=== PATIENT | male | born 1945 | race Caucasian/White ===

== ENCOUNTER → 2018-06-06 16:16 | Outpatient (CLI) | payer OTHER, SELFPAY ==
[2018-06-09 14:35] LABS: Albumin 4.3 g/dL (3.6-5.1); Sex Hormone Binding Globulin 17 nmol/L (22-77); Testosterone, Bioavailable 123.2 ng/dL (15.0-150.0); Testosterone, Total 298 ng/dL (250-1100); Testosterone,Free 62.6 pg/mL (6.0-73.0)
== END ==
PROVIDERS: Family Provider Physician Assistant Medical; Visit Provider Internal Medicine
DX: E29.1 Testicular hypofunction (principal)
CPT/HCPCS: 36415; 82040; 84270; 84403

== ENCOUNTER → 2018-06-24 12:04 | Outpatient (CLI) | payer OTHER, SELFPAY | DX: Z23 Encounter for immunization (principal) | CPT/HCPCS: 90471; 90662 ==

== ENCOUNTER → 2018-08-19 08:24 | Outpatient (CLI) | payer OTHER, SELFPAY ==
--- NOTE | 2018-08-19 | DI.ECHO.S_ITS ---
[place] +---------+ [facility] +---------+ : : [address] : : : : [place] : : : : [id number] : : : : Phone: [phone]+ Echocardiogram Report + + :Name: PHILIP VYAS V Study Date: 08/19/2018 Height: 70 in : :[facility] Exam Location: [facility] Weight: 167 lb : : Gender: Male BSA: 1.9 m2 : :: 1945 Age: 72 yrs BP: 122/64 mmHg: :Reason For Study: Cardiomyopathy : :Ordering Physician: Tunde : :Bipin Performed By: Monica Davila : :Referring: Tunde Voss : + + Interpretation Summary The left ventricle is moderately dilated. The ejection fraction is estimated to be 30-35%. There has been no significant change in LV EF since the previous study. The right ventricle is grossly normal size. The right ventricular systolic function is normal. There is a pacemaker lead in the right ventricle. There is mild tricuspid regurgitation. The right ventricular systolic pressure is estimated to be at least 34 mmHg based on an estimated right atrial pressure of 3 mm Hg. The ascending aorta is mild-moderately enlarged. Procedure: A two-dimensional transthoracic echocardiogram with color flow and Doppler was performed. The study quality was technically adequate. Comparison is made with the echocardiogram of 08/21/2010. The patient has a paced rhythm. Left Ventricle: The left ventricle is moderately dilated. Left ventricular wall thickness is normal. A false chord is noted (normal variant). There is no thrombus. The ejection fraction is estimated to be 30-35%. There has been no significant change since the previous study. There is moderate to severe global hypokinesis of the left ventricle. There is apical akinesis. There is apical septal wall akinesis. There is mid inferoseptal wall akinesis. There is apical inferior wall akinesis. There is mid anteroseptal wall akinesis. There is mid anterior wall akinesis. There is apical anterior wall akinesis. Diastolic parameters suggest a relaxation abnormality of the left ventricle, consistent with probable normal filling pressures. Right Ventricle: There is a pacemaker lead in the right ventricle. The right ventricle is grossly normal size. The right ventricular systolic function is normal. Atria: The left atrium is mildly dilated. There has been no significant change since the previous study. Right atrial size is normal. There is a catheter/pacemaker lead seen in the right atrium. The interatrial septum is intact with no evidence for an atrial septal defect. Mitral Valve: The mitral valve leaflets appear borderline thickened, but open well. There is mild mitral annular calcification. The mitral valve leaflets are slightly calcified. There is trace mitral regurgitation. Aortic Valve: The aortic valve is trileaflet. The aortic valve opens well. There is no aortic valvular vegetation. There is no hemodynamically significant valvular aortic stenosis. There is trace aortic regurgitation. Tricuspid Valve: The tricuspid valve is normal. There is mild tricuspid regurgitation. The right ventricular systolic pressure is estimated to be at least 34 mmHg based on an estimated right atrial pressure of 3 mm Hg. Pulmonic Valve: The pulmonic valve is not well seen, but is grossly normal. There is trace pulmonic regurgitation. Great Vessels: The aortic root is normal size. The ascending aorta is mild- moderately enlarged. The IVC is of normal diameter and collapses greater than 50% with a sniff. This suggests a low right atrial pressure of 3 mm Hg. Pericardium/ Pleura There is an anterior echo-free space consistent with a fat pad. There is no pericardial effusion. There is no pleural effusion. MMode/2D Measurements & Calculations LVIDd: 6.6 cm LVOT diam: 2.3 cm LVIDs: 4.4 cm Ao root diam: 3.5 cm FS: 34.0 % asc Aorta Diam: 4.2 cm IVSd: 0.79 cm Ao Arch Diam (Prox Trans): 3.4 cm LVPWd: 0.82 cm LV ambrose. diameter/BSA (cm/m^2): 3.4 LV sys. diameter/BSA (cm/m^2): 2.3 LA A2 area: 26.9 cm2 RA long axis: 4.1 cm LA A4 area: 17.9 cm2 RA area: 14.5 cm2 LA length (vol): 5.5 cm RA vol: 43.7 ml LA vol: 74.3 ml RA : 22.6 ml/m2 LA vol index: 38.4 ml/m2 IVC diam: 1.6 cm TAPSE: 2.1 cm Doppler Measurements & Calculations Ao V2 max: 121.4 cm/sec LVOT Max Keven: 110.0 cm/sec Ao V2 mean: 85.3 cm/sec LV V1 max P.8 mmHg Ao max P.9 mmHg LV V1 VTI: 23.3 cm Ao mean P.2 mmHg ESTELLE(I,D): 3.7 cm2 Ao V2 VTI: 26.5 cm ESTELLE(V,D): 3.8 cm2 sev ratio: 0.88 ESTELLE indexed to BSA (cm^2/m^2): 1.9 MV E max keven: 66.2 cm/sec TR max keven: 279.7 cm/sec MV A max keven: 80.3 cm/sec TR max P.3 mmHg MV E/A: 0.82 PA V2 max: 68.7 cm/sec MV dec time: 0.14 sec PA V2 mean: 45.5 cm/sec PA mean P.95 mmHg PA pr(Accel): 30.8 mmHg SV(LVOT): 96.9 ml Reading Physician:MARIAMA
== END ==
PROVIDERS: Family Provider Physician Assistant Medical; PCP Physician Assistant Medical; Visit Provider Internal Medicine Cardiovascular Disease
DX: I07.1 Rheumatic tricuspid insufficiency (principal); I42.9 Cardiomyopathy, unspecified; Z95.0 Presence of cardiac pacemaker
CPT/HCPCS: 93306

== ENCOUNTER → 2019-04-03 11:13 | Outpatient (CLI) | payer OTHER, SELFPAY ==
[2019-04-03 11:42] LABS: Bacteria Urine None Seen; RBC Urine None Seen (0-5/HPF)
[2019-04-03 12:26] LABS: Appearance Urine UA CLEAR; Bilirubin Urine UA NEGATIVE (NEGATIVE); Color Urine UA YELLOW; Glucose Urine UA NEGATIVE (Negative); Ketones Urine UA NEGATIVE (NEGATIVE); Leukocyte Esterase Urine UA NEGATIVE (NEGATIVE); Nitrite Urine UA NEGATIVE (Negative); Occult Blood Urine UA NEGATIVE (Negative); Protein Urine UA NEGATIVE (Negative); Urobilinogen Urine UA 0.2 E.U./dL (0.2); pH Urine UA 5.5 (4.5-8.0)
[2019-04-03 13:04] LABS: Culture Indicated Urine Cult Not Indicated; Squamous Epithelial Cell Urine 0-1 /HPF (0-5/HPF); WBC Urine 0-1/HPF (0-5/HPF)
[2019-04-03 13:08] LABS: BUN Creatinine Ratio 14.3 (6-22); Blood Urea Nitrogen 20 mg/dL (9-20); Calcium 9.2 mg/dL (8.4-10.2); Carbon Dioxide 29 mmol/L (22-32); Chloride 104 mmol/L (98-107); Estimated Glomerular Filt Rate 49.5 mL/min (>60); Glucose 87 mg/dL (80-110); HEMOLYSIS < 15 (0-50); Potassium 4.5 mmol/L (3.4-5.1); Sodium 141 mmol/L (137-145)
== END ==
PROVIDERS: PCP Internal Medicine; Visit Provider Internal Medicine
DX: I10 Essential (primary) hypertension (principal)
CPT/HCPCS: 36415; 80048; 81001

== ENCOUNTER → 2019-06-16 14:42 | Outpatient (CLI) | payer OTHER, SELFPAY | PROVIDERS: PCP Internal Medicine | DX: Z23 Encounter for immunization (principal) | CPT/HCPCS: 90471; 90662 ==

== ENCOUNTER → 2019-06-26 07:51 | Outpatient (CLI) | payer OTHER, SELFPAY | PROVIDERS: PCP Internal Medicine; Visit Provider Internal Medicine | DX: E29.1 Testicular hypofunction (principal) | CPT/HCPCS: 84402; 84403 ==

== ENCOUNTER → 2020-05-18 07:55 | Outpatient (CLI) | payer OTHER, SELFPAY ==
[2020-05-18 08:40] LABS: Add Manual Diff / Slide Review NO; Basophils Absolute Auto 0 /uL (0-100); Basophils Percent Auto 0.6 % (0-2); Eosinophils Absolute Auto 100 /uL (0-450); Eosinophils Percent Auto 1.8 % (2-4); Hematocrit 52.5 % (41-53); Hemoglobin 17.5 g/dL (13.5-17.5); Lymphocytes Absolute Auto 1200 /uL (1100-4500); Lymphocytes Percent Auto 17.2 % (25-40); Mean Corpuscular HGB Conc 33.3 % (30-36); Mean Corpuscular Hemoglobin 30.4 PG (26-34); Mean Corpuscular Volume 91.5 fL (80-100); Monocytes Absolute Auto 600 /uL (0-900); Monocytes Percent Auto 9.2 % (3-14); Neutrophils Absolute Auto 5000 /uL (1500-7000); Neutrophils Percent Auto 71.2 % (50-75); Platelet Count 132 X10^3/uL (150-400); Red Blood Cell Count 5.74 X10^6/uL (4.5-5.9); Red Cell Distribution Width 16.8 % (11.6-14.8)
[2020-05-24 12:21] LABS: Percent Free Testosterone 3.42 % (1.50-4.20); Testosterone Free 6.93 ng/dL (5.00-21.00); Testosterone Total 202.7 ng/dL (264.0-916.0)
== END ==
PROVIDERS: PCP Internal Medicine; Referring Provider Internal Medicine; Visit Provider Internal Medicine
DX: E29.1 Testicular hypofunction (principal); N40.1 Benign prostatic hyperplasia with lower urinary tract symptoms; R39.16 Straining to void
CPT/HCPCS: 36415; 84153; 84402; 84403; 85025

== ENCOUNTER → 2020-06-14 03:51 | Outpatient (CLI) | payer OTHER, SELFPAY | PROVIDERS: PCP Internal Medicine; Referring Provider Internal Medicine; Visit Provider Internal Medicine | DX: Z23 Encounter for immunization (principal) | CPT/HCPCS: 90471; 90662 ==

== ENCOUNTER → 2020-09-22 11:38 | Outpatient (CLI) | payer OTHER, SELFPAY ==
[2020-09-22 13:32] LABS: Prostate Specific Antigen 6.29 ng/mL (0.10-4.00)
== END ==
PROVIDERS: PCP Internal Medicine; Referring Provider Internal Medicine; Visit Provider Internal Medicine
DX: E29.1 Testicular hypofunction (principal)
CPT/HCPCS: 36415; 84153

== ENCOUNTER → 2021-02-13 07:29 | Outpatient (CLI) | payer OTHER, SELFPAY ==
[2021-02-13 08:42] LABS: Alanine Aminotransferase 23 IU/L (<50); Albumin 3.8 g/dL (3.5-5.0); Albumin Globulin Ratio 1.5 (1.0-2.8); Alkaline Phosphatase 64 U/L (38-126); Aspartate Aminotransferase 26 IU/L (17-59); BUN Creatinine Ratio 14.5 (6-22); Blood Urea Nitrogen 20 mg/dL (9-20); Calcium 9.6 mg/dL (8.4-10.2); Carbon Dioxide 30 mmol/L (22-32); Chloride 102 mmol/L (98-107); Cholesterol 124 mg/dL (140-199); Estimated Glomerular Filt Rate 50.1 mL/min (>60); Globulin 2.5 g/dL (1.7-4.1); Glucose 86 mg/dL (80-110); HDL Cholesterol 45 mg/dL (40-60); HEMOLYSIS < 15 (0-50); LDL Cholesterol Calculated 60 mg/dL (<100); Potassium 4.4 mmol/L (3.4-5.1); Sodium 139 mmol/L (137-145); Total Protein 6.3 g/dL (6.3-8.2); Triglycerides 93 mg/dL (35-150)
== END ==
PROVIDERS: PCP Internal Medicine; Referring Provider Internal Medicine Cardiovascular Disease; Visit Provider Internal Medicine Cardiovascular Disease
DX: E78.5 Hyperlipidemia, unspecified (principal)
CPT/HCPCS: 36415; 80053; 80061

== ENCOUNTER → 2021-04-10 13:04 | Outpatient (CLI) | payer OTHER, SELFPAY ==
[2021-04-10 15:57] LABS: COVID19 -Nasal RAPID Negative (Negative)
== END ==
PROVIDERS: PCP Internal Medicine; Visit Provider Nurse Practitioner
DX: Z01.812 Encounter for preprocedural laboratory examination (principal); Z20.822 Contact with and (suspected) exposure to COVID-19
CPT/HCPCS: 87635

== ENCOUNTER → 2021-04-12 09:13 | Outpatient (CLI) | payer OTHER, SELFPAY ==
--- NOTE | 2021-04-12 09:14 | DI.ECHO.S_ITS ---
[place] +---------+ Hospital +---------+ : : [address] [place] : : : : [id number] : : : : Phone: [phone]+ Echocardiogram Report + + :Name: PHILIP VYAS V Study Date: 04/12/2021 Height: 71 in : :[facility] ReadingLocation: Weight: 165 lb : : Gender: Male BSA: 1.9 m2 : :: 1945 Age: 75 yrs BP: 130/74 mmHg: :Reason For Study: ISCHEMIC CARDIOMYOPATHY : :Ordering Physician: : :ASHIA BERRY Performed By: Comfort Groves : :Referring: ASHIA BERRY : + + Interpretation Summary The left ventricle is normal in size. The ejection fraction is estimated to be 30-35%. There has been no significant change in LVEF since the previous exam. The right ventricle is normal in size and function. There is a pacemaker lead in the right ventricle. No significant valvular pathology seen. The ascending aorta is mildly enlarged. 3.8 cm in diameter. Previously it was 4.2 cm. The IVC is of normal diameter and collapses greater than 50% with a sniff. This suggests a low right atrial pressure of 3 mm Hg. Mild atherosclerotic plaque(s) in the aortic arch. Procedure: A two-dimensional transthoracic echocardiogram with color flow and Doppler was performed. The study quality was technically adequate. Comparison is made with the echocardiogram of 08/19/2018. The heart rate ranged between 58-70 bpm during the study. The patient was in normal sinus rhythm during the exam. Left Ventricle: The left ventricle is normal in size. Proximal septal thickening is noted. There is no echo evidence for significant left ventricular outflow tract obstruction. There is no thrombus. The ejection fraction is estimated to be 30-35%. There has been no significant change since the previous exam. There is moderate to severe global hypokinesis of the left ventricle. There is apical akinesis. There is apical septal wall akinesis. There is mid inferoseptal wall akinesis. There is apical inferior wall akinesis. There is mid anteroseptal wall akinesis. Compared to the prior exam, the left ventricular wall motion has not changed. Diastolic parameters suggest a relaxation abnormality of the left ventricle, consistent with probable normal filling pressures. There has been no significant change since the previous study. Right Ventricle: The right ventricle is normal in size and function. There is a pacemaker lead in the right ventricle. Atria: The left atrial size is normal. Right atrial size is normal. There is no Doppler evidence for an interatrial shunt. Mitral Valve: The mitral valve leaflets appear mildly thickened, but open well. There is mild mitral annular calcification. The mitral valve leaflets are mildly calcified. There is mild mitral regurgitation. Aortic Valve: The aortic valve is trileaflet. The aortic valve opens well. There is no aortic valve stenosis. No aortic regurgitation is present. Tricuspid Valve: The tricuspid valve is normal. There is mild tricuspid regurgitation. The right ventricular systolic pressure is estimated to be at least 23 mmHg based on an estimated right atrial pressure of 3 mm Hg. Compared to the prior echo exam, there has been no change in TR severity. Pulmonic Valve: The pulmonic valve is not well visualized. There is no pulmonic valvular regurgitation. Great Vessels: The aortic root is normal size. The ascending aorta is mildly enlarged. Mild atherosclerotic plaque(s) in the aortic arch. The IVC is of normal diameter and collapses greater than 50% with a sniff. This suggests a low right atrial pressure of 3 mm Hg. Pericardium/ Pleura There is no pericardial effusion. There is no pleural effusion. MMode/2D Measurements & Calculations LVIDd: 5.4 cm LVOT diam: 2.0 cm LVIDs: 4.2 cm Ao root diam: 3.4 cm FS: 22.8 % asc Aorta Diam: 3.8 cm IVSd: 0.97 cm Ao Arch Diam (Prox Trans): 3.5 cm LVPWd: 0.93 cm LV ambrose. diameter/BSA (cm/m^2): 2.8 LV sys. diameter/BSA (cm/m^2): 2.1 LA A2 area: 19.7 cm2 RA long axis: 4.1 cm LA A4 area: 17.9 cm2 RA area: 13.4 cm2 LA length (vol): 4.8 cm RA vol: 36.8 ml LA vol: 62.6 ml RA : 18.9 ml/m2 LA vol index: 32.2 ml/m2 IVC diam: 1.4 cm RVD1 (basal): 3.3 cm TAPSE: 1.7 cm Doppler Measurements & Calculations Ao V2 max: 99.7 cm/sec LVOT Max Keven: 113.2 cm/sec Ao V2 mean: 72.0 cm/sec LV V1 max P.1 mmHg Ao max P.0 mmHg LV V1 VTI: 20.1 cm Ao mean P.3 mmHg ESTELLE(I,D): 3.3 cm2 Ao V2 VTI: 19.5 cm ESTELLE(V,D): 3.6 cm2 sev ratio: 1.0 ESTELLE indexed to BSA (cm^2/m^2): 1.7 MV E max keven: 57.6 cm/sec TR max keven: 222.9 cm/sec MV A max keven: 94.3 cm/sec TR max P.9 mmHg MV E/A: 0.61 PA V2 max: 91.4 cm/sec Med Peak E' Keven: 5.7 cm/sec PA V2 mean: 58.7 cm/sec E/E' med: 10.2 PA mean P.6 mmHg Lat Peak E' Keven: 7.4 cm/sec PA pr(Accel): 32.8 mmHg E/E' lat: 7.8 E/e' average: 9.0 MV dec time: 0.22 sec SV(LVOT): 64.3 ml Reading Physician:01:39 PM
--- NOTE | 2021-04-12 19:48 | DI.NM.S_ITS ---
DATE OF SERVICE: 04/12/2021 PROCEDURE: Exercise perfusion study. INDICATIONS: Coronary artery disease, history of anterior wall ME, LAD stent, AICD with revascularization more than 10 years ago. RADIOPHARMACEUTICAL: 25.1 millicurie technetium-99m Myoview IV was injected at stress and 11.3 millicurie technetium-99m Myoview IV was injected at rest. CARDIAC STRESS: The patient underwent exercise perfusion study under the supervision of an attending staff. Patient walked on Wood protocol for 7 minutes and 58 seconds, achieved 101 percent of target heart rate. Baseline blood pressure 110/70. Peak blood pressure 160/86 mmHg. The patient achieved 8.8 METs of workload and functional aerobic impairment -18 percent. 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 During stress, there were no new convincing ischemic changes. There were occasional PVCs without any ventricular tachycardia. RAW DATA: There appears to be adequate myocardial uptake. GATED STUDY: Resting LV ejection fraction reported to be 48 percent with hypokinesis of mid to distal anterior wall, apex and distal inferior wall, as well as septum. The stress LV ejection fraction reported to be 52 percent. Resting end-diastolic volume 157 mL. TID ratio 0.91, which is within normal limits. Lung/heart ratio 0.33, which is within normal limits. MYOCARDIAL PERFUSION SCAN: Stress supine, resting supine and stress prone images were compared to each other. There appears to be predominantly fixed ,moderate to large size, moderate to severely decreased perfusion of mid to distal anterior wall, entire apex extending into the distal inferior wall, as well as septum, consistent with prior infarction of the proximal LAD territory. No significant reversible ischemia. 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 Good exercise tolerance. YUE -18 percent. Normal hemodynamic response. No obvious ischemic electrocardiographic changes. No chest pain. The patient had a perfusion study in May,. At that time also had similar perfusion defect. The patient was able to walk for 8 minutes and 11 seconds at that time. Maury Huntley - [place] doc#: [id number]/job#: [id number] dd: 04/12/2021 17:19:00 dt: 04/12/2021 19:09:00 DICTATING MD/COPIES TO: Tunde Voss MD COPIES MNE: EDGAR;
== END ==
PROVIDERS: PCP Internal Medicine; Referring Provider Internal Medicine Cardiovascular Disease; Visit Provider Internal Medicine Cardiovascular Disease
DX: I08.1 Rheumatic disorders of both mitral and tricuspid valves (principal); I25.5 Ischemic cardiomyopathy; I49.3 Ventricular premature depolarization; I77.89 Other specified disorders of arteries and arterioles; I70.0 Atherosclerosis of aorta; Z95.0 Presence of cardiac pacemaker
CPT/HCPCS: 78452; 93017; 93306; A9502

== ENCOUNTER → 2022-05-30 07:13 | Outpatient (CLI) | payer OTHER, SELFPAY ==
[2022-05-30 10:12] LABS: Alanine Aminotransferase 24 IU/L (<50); Albumin 3.9 g/dL (3.5-5.0); Albumin Globulin Ratio 1.7 (1.0-2.8); Alkaline Phosphatase 61 U/L (38-126); Aspartate Aminotransferase 25 IU/L (17-59); BUN Creatinine Ratio 15.8 (6-22); Bilirubin Total 0.9 mg/dL (0.2-1.3); Blood Urea Nitrogen 22 mg/dL (9-20); Calcium 8.8 mg/dL (8.4-10.2); Carbon Dioxide 32 mmol/L (22-32); Chloride 100 mmol/L (98-107); Cholesterol 113 mg/dL (140-199); Estimated Glomerular Filt Rate 52 mL/min (>60); Globulin 2.3 g/dL (1.7-4.1); Glucose 81 mg/dL (80-110); HDL Cholesterol 45 mg/dL (40-60); HEMOLYSIS < 15 (0-50); LDL Cholesterol Calculated 55 mg/dL (<100); Sodium 141 mmol/L (137-145); Total Protein 6.2 g/dL (6.3-8.2); Triglycerides 66 mg/dL (35-150)
== END ==
PROVIDERS: PCP Internal Medicine; Referring Provider Internal Medicine Cardiovascular Disease; Visit Provider Internal Medicine Cardiovascular Disease
DX: E78.5 Hyperlipidemia, unspecified (principal)
CPT/HCPCS: 36415; 80053; 80061

== ENCOUNTER → 2023-06-13 07:59 | Outpatient (CLI) | payer OTHER, SELFPAY ==
[2023-06-13 08:54] LABS: Add Manual Diff / Slide Review NO; Basophils Absolute Auto 100 /uL (0-100); Basophils Percent Auto 0.9 % (0-2); Eosinophils Absolute Auto 200 /uL (0-450); Eosinophils Percent Auto 2.9 % (2-4); Hematocrit 43.9 % (41-53); Hemoglobin 14.6 g/dL (13.5-17.5); Lymphocytes Absolute Auto 1100 /uL (1100-4500); Lymphocytes Percent Auto 17.4 % (25-40); Mean Corpuscular HGB Conc 33.4 % (30-36); Mean Corpuscular Hemoglobin 28.5 PG (26-34); Mean Corpuscular Volume 85.4 fL (80-100); Monocytes Absolute Auto 600 /uL (0-900); Monocytes Percent Auto 9.5 % (3-14); Neutrophils Absolute Auto 4500 /uL (1500-7000); Neutrophils Percent Auto 69.3 % (50-75); Platelet Count 180 X10^3/uL (150-400); Red Blood Cell Count 5.14 X10^6/uL (4.5-5.9); Red Cell Distribution Width 16.2 % (11.6-14.8); White Blood Cell Count 6.5 X10^3/uL (4.5-11.0)
[2023-06-13 08:56] LABS: HEMOLYSIS < 15 (0-50)
[2023-06-13 09:03] LABS: Alanine Aminotransferase 21 IU/L (<50); Albumin 3.9 g/dL (3.5-5.0); Albumin Globulin Ratio 1.8 (1.0-2.8); Alkaline Phosphatase 54 U/L (38-126); Aspartate Aminotransferase 22 IU/L (17-59); BUN Creatinine Ratio 13.6 (6-22); Blood Urea Nitrogen 19 mg/dL (9-20); Calcium 9.4 mg/dL (8.4-10.2); Carbon Dioxide 31 mmol/L (22-32); Chloride 103 mmol/L (98-107); Cholesterol 109 mg/dL (140-199); Estimated Glomerular Filt Rate 51 mL/min (>60); Globulin 2.2 g/dL (1.7-4.1); Glucose 93 mg/dL (80-110); HDL Cholesterol 44 mg/dL (40-60); LDL Cholesterol Calculated 48 mg/dL (<100); Potassium 4.1 mmol/L (3.4-5.1); Sodium 139 mmol/L (137-145); Total Protein 6.1 g/dL (6.3-8.2); Triglycerides 85 mg/dL (35-150)
[2023-06-18 16:16] LABS: Prostate Specific Antigen 15.3 ng/mL (0.10-4.00)
[2023-06-20 08:13] LABS: Percent Free Testosterone 4.95 % (1.50-4.20); Testosterone Free 23.95 ng/dL (5.00-21.00); Testosterone Total 483.8 ng/dL (264.0-916.0)
== END ==
PROVIDERS: PCP Internal Medicine; Referring Provider Internal Medicine; Visit Provider Internal Medicine
DX: E29.1 Testicular hypofunction (principal); I25.5 Ischemic cardiomyopathy; I25.10 Atherosclerotic heart disease of native coronary artery without angina pectoris
CPT/HCPCS: 36415; 80053; 80061; 83735; 84153; 84402; 84403; 85025

== ENCOUNTER → 2023-11-25 08:05 | Outpatient (CLI) | payer OTHER, SELFPAY ==
[2023-12-03 23:37] LABS: Testosterone,Free 25.5 pg/mL (6.6-18.1)
== END ==
PROVIDERS: PCP Internal Medicine; Referring Provider Internal Medicine; Visit Provider Internal Medicine
DX: E29.1 Testicular hypofunction (principal)
CPT/HCPCS: 36415; 84402; 84403

== ENCOUNTER 2024-03-18 15:01 | Observation (INO) | payer OTHER, SELFPAY ==
[2024-03-18] VITALS (50 sets, daily range): BP systolic 80–108; BP diastolic 48–65; PULSE 61–82; RESP 15–38; TEMP 36.8–37.4; O2SAT 94–98; BMI 22.3; BMI 23.6
--- NOTE | 2024-03-18 | DI.RAD.S_ITS ---
PROCEDURE: XR TIBIA FUBULA RT 2V INDICATIONS: wound anterior right tib/fib, red, sore, unhealing TECHNIQUE: 2 views of the tibia and fibula were acquired. COMPARISON: None. FINDINGS: Bones: No fractures or dislocations. No suspicious bony lesions. Soft tissues: No suspicious soft tissue calcifications or masses. Vascular calcifications. IMPRESSION: No acute bony abnormality. Dictated by: Kel Fleming M.D. on 03/18/2024 at 16:03 Approved by: Kel Fleming M.D. on 03/18/2024 at 16:03
--- NOTE | 2024-03-18 15:12 | DI.RAD.S_ITS ---
PROCEDURE: XR CHEST 1V INDICATIONS: suspected sepsis TECHNIQUE: One view of the chest was acquired. COMPARISON: None. FINDINGS: Surgical changes and devices: Left chest wall generator with intravenous lead. Lungs and pleura: Lungs are clear. No pleural effusions or pneumothorax. Mediastinum: Mediastinal contours appear normal. Heart size is normal. Bones and chest wall: No suspicious bony lesions. Overlying soft tissues appear unremarkable. IMPRESSION: No acute cardiopulmonary abnormality is seen. Dictated by: Kel Fleming M.D. on 03/18/2024 at 16:02 Approved by: Kel Fleming M.D. on 03/18/2024 at 16:03
--- NOTE | 2024-03-18 15:12 | EKG_ITS ---
[address] [address] Test Date: 2024-03-18 Pat Name: Maury Huntley Department: Room: Gender: Male Display Trimmer: SANTI : 1945 Requested By: Order Number: [id number] Reading MD: Arnulfo Montemayor MD Measurements Intervals [place] Rate: 80 P: 37 LA: 150 QRS: -66 QRSD: 104 T: 89 QT: 376 QTc: 433 Interpretive Statements Sinus rhythm with occasional premature ventricular complexes Left axis deviation Minimal voltage criteria for LVH, may be normal variant ( Arnegard product ) Septal infarct , age undetermined NO PRIOR TRACING Electronically Signed On 03-19-2024 7:57:26 PDT by Arnulfo Montemayor MD
[2024-03-18] MEDS: SODIUM CHLORIDE 0.9% 1,000 ML 1000 ML IV (15:30)
[2024-03-18 15:34] LABS: Add Manual Diff / Slide Review NO; Basophils Absolute Auto 0 /uL (0-100); Basophils Percent Auto 0.2 % (0-2); Eosinophils Absolute Auto 100 /uL (0-450); Eosinophils Percent Auto 0.3 % (2-4); Hematocrit 42.5 % (41-53); Hemoglobin 14.2 g/dL (13.5-17.5); Lymphocytes Absolute Auto 400 /uL (1100-4500); Mean Corpuscular HGB Conc 33.3 % (30-36); Mean Corpuscular Volume 87.1 fL (80-100); Monocytes Absolute Auto 1100 /uL (0-900); Monocytes Percent Auto 5.4 % (3-14); Neutrophils Absolute Auto 18100 /uL (1500-7000); Neutrophils Percent Auto 92.1 % (50-75); Platelet Count 156 X10^3/uL (150-400); Red Blood Cell Count 4.88 X10^6/uL (4.5-5.9); Red Cell Distribution Width 16.7 % (11.6-14.8); White Blood Cell Count 19.6 X10^3/uL (4.5-11.0)
[2024-03-18 15:40] LABS: INR 1.3 (0.9-1.3); Prothrombin Time 15.3 SECONDS (9.4-12.5)
[2024-03-18 15:43] LABS: PTT Partial Thromboplastin Tim 31 SECONDS (25.1-36.5)
[2024-03-18 15:44] LABS: Alanine Aminotransferase 25 IU/L (<50); Albumin 4.2 g/dL (3.5-5.0); Albumin Globulin Ratio 1.4 (1.0-2.8); Alkaline Phosphatase 59 U/L (38-126); Aspartate Aminotransferase 23 IU/L (17-59); Bilirubin Total 1.5 mg/dL (0.2-1.3); Blood Urea Nitrogen 40 mg/dL (9-20); Calcium 8.9 mg/dL (8.4-10.2); Carbon Dioxide 25 mmol/L (22-32); Chloride 103 mmol/L (98-107); Estimated Glomerular Filt Rate 31 mL/min (>60); Globulin 2.9 g/dL (1.7-4.1); Glucose 100 mg/dL (80-110); HEMOLYSIS < 15 (0-50); Lactate (Lactic Acid) 1.7 mmol/L (0.7-2.1); Lipase 84 U/L (23-300); Potassium 4.9 mmol/L (3.4-5.1); Sodium 136 mmol/L (137-145); Total Protein 7.1 g/dL (6.3-8.2)
[2024-03-18 16:01] LABS: Procalcitonin 3.78 ng/mL (<0.5)
--- NOTE | 2024-03-18 16:56 | ED.WOUNDLAC ---
HPI - Wound/Laceration General Chief Complaint: Wound/Laceration Stated Complaint: leg px sent by [facility] Time Seen by Provider: 03/18/24 15:47 Source: patient, RN notes reviewed, old records reviewed and other (walk in clinic) Mode of arrival: Ambulatory Limitations: no limitations History of Present Illness HPI narrative: 78-year-old male with history of hypertension, dyslipidemia, coronary artery disease with 2 cardiac stents and defibrillator/pacemaker, BPH on aspirin daily who presents with complaint of abrasion or scraped his anterior leg several days ago. They noticed some increasing redness in the last 1-2 days has spread into the foot and up the leg today. No fevers but patient describes rigors and sweats. No chest pain or shortness of breath. No nausea or vomiting. No issues with bowel movements or urination. Patient states legs quite painful to ambulate on. He denies any numbness or tingling. He states at rest it is not painful. Has not had a lot of purulent discharge. He is unsure if his tetanus has been updated recently. States he takes medication for hypertension, dyslipidemia aspirin daily and BPH. Patient is not on any diuretics. Has had prior cardiac stents defibrillator pacemaker but denies any other prior surgeries. Has adverse reaction to Sudafed with urinary retention but no other drug allergies. No tobacco, alcohol or recreational drugs. Dr. Desai is his primary care physician. Dr. Voss is his crimping machine operator. Related Data Home Medications Medication Instructions Recorded Confirmed atorvastatin 40 mg tablet (Lipitor) 40 mg PO DAILY 08/23/19 12/03/22 lisinopril 10 mg tablet 10 mg PO DAILY 08/23/19 12/03/22 metoprolol tartrate 25 mg tablet 25 mg PO DAILY 08/23/19 12/03/22 Previous Rx's Medication Instructions Recorded diclofenac sodium 1 % topical gel 2 g topical QID PRN muscle pain 12/03/22 (Voltaren Arthritis Pain) #100 grams lidocaine 5 % topical patch 1 patch topical DAILY PRN muscle 12/03/22 pain #15 ea methocarbamol 500 mg tablet 500 mg PO TID PRN muscle pain #20 12/03/22 tabs Allergies Allergy/AdvReac Type Severity Reaction Status Date / Time pseudoephedrine AdvReac trouble Verified 03/18/24 14:39 [From Sudafed] urinating Review of Systems Review of Systems ROS Unobtainable: All systems reviewed & are unremarkable except as noted in HPI and below Patient History Social History Smoking Status: Never smoker Smoking Status: Never smoker Exam Narrative Exam Narrative: GENERAL: Alert and oriented x three, male in mild distress. HEENT: Head normocephalic, atraumatic, EOMI, pupils reactive, face symmetric, moist mucous membranes NECK: Supple, full range of motion CARDIOVASCULAR: Regular rate and rhythm without murmurs, rubs or gallops. RESPIRATORY: Breath sounds equal bilaterally, no wheezes rales or rhonchi. ABDOMEN: Soft, nontender. Normoactive bowel sounds all 4 quadrants. No guarding or rebound, rigidity, no mass : No CVA tenderness EXTREMITIES: Normal range of motion, no clubbing. Neurovascularly intact. Patient has half dollar size abrasion on his right anterior obando with about 9 cm of surrounding cellulitis horizontally in about 12 cm vertically and spreading to the dorsum of the foot. Patient is mildly tender over the area. There is some serous drainage but no purulent drainage. Wound culture was obtained. The area was marked in the walk-in clinic, was marked at 1530. NEUROLOGICAL: Cranial nerves II through XII grossly intact. Moving all extremities SKIN: Warm, dry, no petechiae, no rashes or lesions other than noted above. Initial Vital Signs Initial Vital Signs: Vital Signs Temperature 98.3 F 03/18/24 15:05 Pulse Rate 82 03/18/24 15:05 Respiratory Rate 18 03/18/24 15:05 Blood Pressure 80/50 L 03/18/24 15:05 Pulse Oximetry 95 03/18/24 15:05 Oxygen Delivery Method Room Air 03/18/24 15:05 Course Orders Ordered: ED Orders 03/18/24 15:12 XR chest 1V Stat EKG-12 Lead Stat RT Consult Eval and Treat NOW 03/18/24 15:18 Blood Culture Stat Complete Blood Count AUTO DIFF Stat Comprehensive Metabolic Panel Stat Lactate (Lactic Acid) Stat Lipase Stat PTT Partial Thromboplastin K[place] Stat Procalcitonin Stat Prothrombin Time INR Stat 03/18/24 17:03 Wound Culture and Gram Stain Stat Acetaminophen (Acetaminophen 325 Mg Tablet) 650 mg PO Q6H PRN PRN Reason: Fever/Mild Pain (1-3) Hydrocodone Bitart/Acetaminophen (Hydrocodone/Acet 5/325 Tablet) 2 tab PO Q4H PRN PRN Reason: Pain, Severe (7-10) Hydrocodone Bitart/Acetaminophen (Hydrocodone/Acet 5/325 Tablet) 1 tab PO Q4H PRN PRN Reason: Pain, Moderate (4-6) Calcium Carbonate (Calcium Carbonate 500 Mg Tab) 1,000 mg PO Q4HR PRN PRN Reason: Dyspepsia Heparin Sodium (Porcine) (Heparin 5,000 Unit/Ml Vial) 5,000 unit SUBCUT BID FERNANDO Sodium Chloride (Normal Saline 0.9%) 2,259 mls @ 753 mls/hr 30 ml/kg infuse over 3 hr (2259 ml) IV NOW ONE Stop: 03/18/24 20:10 Last Admin: 03/18/24 17:40 Dose: 753 mls/hr Documented By: NEHAL Sodium Chloride (Normal Saline 0.9%) 1,000 mls @ 100 mls/hr IV CONT FERNANDO Ceftriaxone Sodium 1,000 mg/ (Sodium Chloride) 100 mls @ 200 mls/hr IV Q24H FERNANDO Naloxone HCl (Naloxone 0.4 Mg/Ml Vial) 0.2 mg IV Q2MIN PRN PRN Reason: Opiate Reversal Ondansetron HCl (Ondansetron 4 Mg/2 Ml Inj) 4 mg IV NOW PRN PRN Reason: Nausea And Vomiting Ondansetron HCl (Ondansetron 4 Mg/2 Ml Inj) 4 mg IV Q8HR PRN PRN Reason: Nausea And Vomiting Discontinued Medications Sodium Chloride (Normal Saline 0.9%) 1,000 mls @ 1,000 mls/hr IV BOLUS ONE Stop: 03/18/24 16:11 Last Infusion: 03/18/24 17:01 Dose: Infused Documented By: Admin: 03/18/24 15:30 Dose: 1,000 mls/hr Documented By: NATALIE Clindamycin Phosphate (Cleocin) 900 mg in 50 mls @ 50 mls/hr IV NOW ONE Stop: 03/18/24 18:11 Last Admin: 03/18/24 17:39 Dose: 50 mls/hr Documented By: NEHAL Ceftriaxone Sodium 2,000 mg/ (Sodium Chloride) 100 mls @ 200 mls/hr IV NOW ONE Stop: 03/18/24 18:07 Ondansetron HCl (Ondansetron 4 Mg Odt) 4 mg SL NOW PRN PRN Reason: Nausea And Vomiting Vital Signs Vital signs: Vital Signs - 8 hr 03/18/24 15:05 03/18/24 15:17 03/18/24 15:30 Temperature 98.3 F Pulse Rate 82 77 74 Respiratory Rate 18 19 18 Blood Pressure 80/50 L Pulse Oximetry 95 96 95 Oxygen Delivery Method Room Air 03/18/24 15:30 03/18/24 15:35 03/18/24 15:35 Temperature Pulse Rate 77 Respiratory Rate 22 Blood Pressure 83/50 L 107/57 L Pulse Oximetry 95 Oxygen Delivery Method 03/18/24 15:40 03/18/24 15:40 03/18/24 15:45 Temperature Pulse Rate 72 71 Respiratory Rate 17 19 Blood Pressure 90/55 L Pulse Oximetry 96 94 Oxygen Delivery Method 03/18/24 15:45 03/18/24 15:47 03/18/24 15:47 Temperature Pulse Rate 71 Respiratory Rate 18 Blood Pressure 87/53 L 87/53 L Pulse Oximetry 96 Oxygen Delivery Method 03/18/24 15:50 03/18/24 15:50 03/18/24 15:55 Temperature Pulse Rate 71 67 Respiratory Rate 19 17 Blood Pressure 92/51 L Pulse Oximetry 95 94 Oxygen Delivery Method 03/18/24 15:55 03/18/24 16:00 03/18/24 16:00 Temperature Pulse Rate 66 Respiratory Rate 17 Blood Pressure 93/52 L 96/52 L Pulse Oximetry 95 Oxygen Delivery Method 03/18/24 16:05 03/18/24 16:05 03/18/24 16:10 Temperature Pulse Rate 66 64 Respiratory Rate 17 18 Blood Pressure 96/54 L Pulse Oximetry 96 96 Oxygen Delivery Method 03/18/24 16:10 03/18/24 16:15 03/18/24 16:15 Temperature Pulse Rate 70 Respiratory Rate 17 Blood Pressure 96/50 L 95/54 L Pulse Oximetry 96 Oxygen Delivery Method 03/18/24 16:20 03/18/24 16:20 03/18/24 16:25 Temperature Pulse Rate 68 64 Respiratory Rate 17 17 Blood Pressure 92/50 L Pulse Oximetry 96 97 Oxygen Delivery Method 03/18/24 16:25 03/18/24 16:30 03/18/24 16:30 Temperature Pulse Rate 62 Respiratory Rate 18 Blood Pressure 99/51 L 93/52 L Pulse Oximetry 97 Oxygen Delivery Method 03/18/24 16:35 03/18/24 16:35 03/18/24 16:40 Temperature Pulse Rate 64 63 Respiratory Rate 16 15 Blood Pressure 98/54 L Pulse Oximetry 97 98 Oxygen Delivery Method 03/18/24 16:40 03/18/24 16:45 03/18/24 16:45 Temperature Pulse Rate 61 Respiratory Rate 16 Blood Pressure 99/53 L 106/54 L Pulse Oximetry 98 Oxygen Delivery Method 03/18/24 16:50 03/18/24 16:50 03/18/24 16:55 Temperature Pulse Rate 61 63 Respiratory Rate 15 16 Blood Pressure 101/56 L Pulse Oximetry 98 98 Oxygen Delivery Method 03/18/24 16:55 03/18/24 17:00 03/18/24 17:00 Temperature Pulse Rate 61 Respiratory Rate 15 Blood Pressure 100/58 L 100/51 L Pulse Oximetry 98 Oxygen Delivery Method 03/18/24 17:05 03/18/24 17:05 Temperature Pulse Rate 67 Respiratory Rate 17 Blood Pressure 97/59 L Pulse Oximetry 98 Oxygen Delivery Method MDM - Wound/Laceration Lab Data 03/18/24 15:18 03/18/24 15:18 Labs: Lab Results 03/18/24 Range/Units 15:18 WBC 19.6 H (4.5-11.0) X10^3/uL RBC 4.88 (4.5-5.9) X10^6/uL Hgb 14.2 (13.5-17.5) g/dL Hct 42.5 (41-53) % MCV 87.1 (80-100) fL MCH 29.0 (26-34) PG MCHC 33.3 (30-36) % RDW 16.7 H (11.6-14.8) % Plt Count 156 (150-400) X10^3/uL Neut % (Auto) 92.1 H (50-75) % Lymph % (Auto) 2.0 L (25-40) % [place] % (Auto) 5.4 (3-14) % Eos % (Auto) 0.3 L (2-4) % Baso % (Auto) 0.2 (0-2) % Neut # (Auto) 39365 H (6499-0855) /uL Lymph # (Auto) 400 L (5066-7505) /uL [place] # (Auto) 1100 H (0-900) /uL Eos # (Auto) 100 (0-450) /uL Baso # (Auto) 0 (0-100) /uL PT 15.3 H (9.4-12.5) SECONDS INR 1.3 (0.9-1.3) APTT 31 (25.1-36.5) SECONDS Sodium 136 L (137-145) mmol/L Potassium 4.9 (3.4-5.1) mmol/L Chloride 103 (98-107) mmol/L Carbon Dioxide 25 (22-32) mmol/L BUN 40 H (9-20) mg/dL Creatinine 2.10 H (0.66-1.25) mg/dL Estimated GFR 31 L (>60) mL/min BUN/Creatinine Ratio 19.0 (6-22) Glucose 100 (80-110) mg/dL Lactate 1.7 (0.7-2.1) mmol/L Calcium 8.9 (8.4-10.2) mg/dL Total Bilirubin 1.5 H (0.2-1.3) mg/dL AST 23 (17-59) IU/L ALT 25 (<50) IU/L Alkaline Phosphatase 59 (38-126) U/L Total Protein 7.1 (6.3-8.2) g/dL Albumin 4.2 (3.5-5.0) g/dL Globulin 2.9 (1.7-4.1) g/dL Albumin/Globulin Ratio 1.4 (1.0-2.8) Lipase 84 (23-300) U/L Procalcitonin 3.78 H (<0.5) ng/mL ECG Data Attestation: I personally reviewed and interpreted this ECG as follows: Interpretation: Sinus rhythm occasional PVCs left axis deviation rate 80 KS 150 QRS of 104 QTC of 433. No acute ST elevation. MDM Narrative Medical decision making narrative: Patient has a white count of 19 hemoglobin of 14 platelets of 156, predominance of neutrophils INR is 1.3. Sodium of 136 creatinine 2.1 increased from June of 2023 unclear if this is a new STEPHANI versus chronic kidney disease BUN of 40, lactate 1.7 bilirubin slightly elevated at 1.5 procalcitonin 3.78. Chest x-ray is negative for acute change Culture of the site was obtained. Patient was covered with for MRSA coverage but bit more renal protective then vancomycin and Rocephin. Patient had received a L bolus, had minimal improvement of blood pressure typically runs 115 to 120s he has been running 80-90 systolic. Did have a mild improvement to 100 systolic was given 30 cc/kilos bolus. Patient does not have any known CHF history. Patient does not technically meet septic criteria does have a white count but and hypotensive but no tachycardia, afebrile no tachypnea although patient is on a beta lizette which may blood his reflex tachycardia. Spoke with Dr. Vaughan hospitalist about observation for cellulitis with sepsis. Patient accepted. Discharge Plan Departure Patient Disposition: Admitted as Observation Clinical Impression: Cellulitis of anterior lower leg, Sepsis Admit Date/Time: 03/18/24 18:07 Admit Provider: Hernandez Vaughan
[2024-03-18] MEDS: CLINDAMYCIN 900 MG/50 ML PIGGYBACK 50 MG IV (17:39)
[2024-03-18] MEDS: SODIUM CHLORIDE 0.9% 2,259 ML 753 ML IV (17:40)
--- NOTE | 2024-03-18 18:25 | P.HP_ITS ---
History of Present Illness History of Present Illness Date Patient Seen: 03/18/24 Time Patient Seen: 18:25 Chief complaint: leg px sent by [facility] Narrative: From ED doctor: 78-year-old male with history of hypertension, dyslipidemia, coronary artery disease with 2 cardiac stents and defibrillator/pacemaker, BPH on aspirin daily who presents with complaint of abrasion or scraped his anterior leg several days ago. They noticed some increasing redness in the last 1-2 days has spread into the foot and up the leg today. No fevers but patient describes rigors and sweats. No chest pain or shortness of breath. No nausea or vomiting. No issues with bowel movements or urination. Patient states legs quite painful to ambulate on. He denies any numbness or tingling. He states at rest it is not painful. Has not had a lot of purulent discharge. He is unsure if his tetanus has been updated recently. States he takes medication for hypertension, dyslipidemia aspirin daily and BPH. Patient is not on any diuretics. Has had prior cardiac stents defibrillator pacemaker but denies any other prior surgeries. Has adverse reaction to Sudafed with urinary retention but no other drug allergies. No tobacco, alcohol or recreational drugs. Dr. Desai is his primary care physician. Dr. Voss is his certified technician specialist. S: He has having a lot of pain with the leg. He also notes that this has been turning red since he abraded at last Saturday. The patient denies any edema. He was having no no history of MRSA. He has been having chills and possibly low- grade fevers. He has no history of cellulitis. He does have an ICD as well as 2 coronary stents. He denies recent chest pain, palpitations, shortness a breath, leg edema. No URI symptoms including rhinorrhea, or sore throat. [facility] Social History Smoking Status: Never smoker Meds Home Medications and Allergies Home Medications Medication Instructions Recorded Confirmed Type atorvastatin 40 mg tablet (Lipitor) 40 mg PO DAILY 08/23/19 12/03/22 History lisinopril 10 mg tablet 10 mg PO DAILY 08/23/19 12/03/22 History metoprolol tartrate 25 mg tablet 25 mg PO DAILY 08/23/19 12/03/22 History diclofenac sodium 1 % topical gel 2 g topical QID PRN muscle pain 12/03/22 12/03/22 Rx (Voltaren Arthritis Pain) #100 grams lidocaine 5 % topical patch 1 patch topical DAILY PRN muscle 12/03/22 12/03/22 Rx pain #15 ea methocarbamol 500 mg tablet 500 mg PO TID PRN muscle pain #20 12/03/22 12/03/22 Rx tabs Allergies Allergy/AdvReac Type Severity Reaction Status Date / Time pseudoephedrine AdvReac trouble Verified 03/18/24 14:39 [From Sudafed] urinating Review of Systems Review of Systems Narrative: All else reviewed and otherwise unremarkable except as noted in the history and physical. Exam Vital Signs (past 8 hours): - 03/18/24 15:05 03/18/24 15:17 03/18/24 15:30 Temperature 98.3 F Pulse Rate 82 77 74 Respiratory Rate 18 19 18 Blood Pressure 80/50 L Pulse Oximetry 95 96 95 Oxygen Delivery Method Room Air 03/18/24 15:30 03/18/24 15:35 03/18/24 15:35 Temperature Pulse Rate 77 Respiratory Rate 22 Blood Pressure 83/50 L 107/57 L Pulse Oximetry 95 Oxygen Delivery Method 03/18/24 15:40 03/18/24 15:40 03/18/24 15:45 Temperature Pulse Rate 72 71 Respiratory Rate 17 19 Blood Pressure 90/55 L Pulse Oximetry 96 94 Oxygen Delivery Method 03/18/24 15:45 03/18/24 15:47 03/18/24 15:47 Temperature Pulse Rate 71 Respiratory Rate 18 Blood Pressure 87/53 L 87/53 L Pulse Oximetry 96 Oxygen Delivery Method 03/18/24 15:50 03/18/24 15:50 03/18/24 15:55 Temperature Pulse Rate 71 67 Respiratory Rate 19 17 Blood Pressure 92/51 L Pulse Oximetry 95 94 Oxygen Delivery Method 03/18/24 15:55 03/18/24 16:00 03/18/24 16:00 Temperature Pulse Rate 66 Respiratory Rate 17 Blood Pressure 93/52 L 96/52 L Pulse Oximetry 95 Oxygen Delivery Method 03/18/24 16:05 03/18/24 16:05 03/18/24 16:10 Temperature Pulse Rate 66 64 Respiratory Rate 17 18 Blood Pressure 96/54 L Pulse Oximetry 96 96 Oxygen Delivery Method 03/18/24 16:10 03/18/24 16:15 03/18/24 16:15 Temperature Pulse Rate 70 Respiratory Rate 17 Blood Pressure 96/50 L 95/54 L Pulse Oximetry 96 Oxygen Delivery Method 03/18/24 16:20 03/18/24 16:20 03/18/24 16:25 Temperature Pulse Rate 68 64 Respiratory Rate 17 17 Blood Pressure 92/50 L Pulse Oximetry 96 97 Oxygen Delivery Method 03/18/24 16:25 03/18/24 16:30 03/18/24 16:30 Temperature Pulse Rate 62 Respiratory Rate 18 Blood Pressure 99/51 L 93/52 L Pulse Oximetry 97 Oxygen Delivery Method 03/18/24 16:35 03/18/24 16:35 03/18/24 16:40 Temperature Pulse Rate 64 63 Respiratory Rate 16 15 Blood Pressure 98/54 L Pulse Oximetry 97 98 Oxygen Delivery Method 03/18/24 16:40 03/18/24 16:45 03/18/24 16:45 Temperature Pulse Rate 61 Respiratory Rate 16 Blood Pressure 99/53 L 106/54 L Pulse Oximetry 98 Oxygen Delivery Method 03/18/24 16:50 03/18/24 16:50 03/18/24 16:55 Temperature Pulse Rate 61 63 Respiratory Rate 15 16 Blood Pressure 101/56 L Pulse Oximetry 98 98 Oxygen Delivery Method 03/18/24 16:55 03/18/24 17:00 03/18/24 17:00 Temperature Pulse Rate 61 Respiratory Rate 15 Blood Pressure 100/58 L 100/51 L Pulse Oximetry 98 Oxygen Delivery Method 03/18/24 17:05 03/18/24 17:05 Temperature Pulse Rate 67 Respiratory Rate 17 Blood Pressure 97/59 L Pulse Oximetry 98 Oxygen Delivery Method Oxygen Delivery Method Room Air Narrative Exam Narrative: NAD, alert and oriented, fluent speech, calm. Normocephalic skull, EOMI, anicteric sclera, symmetric pupils. Oropharynx unremarkable, no droop. Neck supple, midline trachea, no adenopathy. Lungs clear, normal rate and effort. Heart regular, no murmur gallop or rub. Abdomen is soft, non distended and non tender. Extremities are free of edema. Skin is free of rash or lesions. Accept right leg has a small abrasion in the anterior tibial region as well as surrounding erythema which is confluent. No fluctuance. Joints are not swollen or deformed. Judgment appears to be normal. Objective Labs 03/18/24 15:18 03/18/24 15:18 Labs: Laboratory Results - last 24 hr 03/18/24 15:18 WBC 19.6 H RBC 4.88 Hgb 14.2 Hct 42.5 MCV 87.1 MCH 29.0 MCHC 33.3 RDW 16.7 H Plt Count 156 Neut % (Auto) 92.1 H Lymph % (Auto) 2.0 L [place] % (Auto) 5.4 Eos % (Auto) 0.3 L Baso % (Auto) 0.2 Neut # (Auto) 46682 H Lymph # (Auto) 400 L [place] # (Auto) 1100 H Eos # (Auto) 100 Baso # (Auto) 0 PT 15.3 H INR 1.3 APTT 31 Sodium 136 L Potassium 4.9 Chloride 103 Carbon Dioxide 25 BUN 40 H Creatinine 2.10 H Estimated GFR 31 L BUN/Creatinine Ratio 19.0 Glucose 100 Lactate 1.7 Calcium 8.9 Total Bilirubin 1.5 H AST 23 ALT 25 Alkaline Phosphatase 59 Total Protein 7.1 Albumin 4.2 Globulin 2.9 Albumin/Globulin Ratio 1.4 Lipase 84 Procalcitonin 3.78 H Assessment & Plan Assessment & Plan narrative: 1. Right leg cellulitis, present on admission and active. 2. Hypertension, present on admission and stable. 3. Hyperlipidemia, present on admission and stable. 4. CAD with 2 coronary sense, present on admission and stable. 5. AICD, present on admission and stable. 6. BPH, present on admission and stable. Plan: -IV ceftriaxone, leg elevation, monitor blood cultures. -IV fluids for mild hypotension emergency department. There was no lactic acidosis. Monitor blood pressure. -resume all usual medications other than holding blood pressure medications tonight. Estimated 1 midnight need for hospital care, observation status. Full code, is proxy decision maker. Time-Based Coding :: 30 min spent with patient and on the chart (including review of chart, obtaining history, exam, reviewing outside data, placing orders, documenting exam and treatment plan, and counseling patient) on 03/18. Quality MIPS - Admit I confirm the patient?s Advance Care Plan is present, Code status is documented, Surrogate decision maker is in patient?s record [If Yes, STOP here]: Yes MIPS - Meds 'Current medications' to include all prescriptions, [id number] products, herbals, cannabis/cannabidiol products, and vitamin/mineral/dietary (nutritional) supplements. I have utilized all available resources to obtain, update, or review the patient?s current medications. [If Yes, STOP here]: Yes
[2024-03-18] MEDS: cefTRIAXone 2,000 MG in SODIUM CHLORIDE 0.9% 100 ML 200 MG IV (18:41)
[2024-03-18] MEDS: SODIUM CHLORIDE 0.9% 1,000 ML 100 ML IV (19:39)
[2024-03-18] MEDS: HEPARIN 5,000 UNIT/ML VIAL 5000 UNIT SUBCUT (21:25)
[2024-03-19 02:00] VITALS: BP 122/80; PULSE 76; RESP 17; TEMP 36.6; O2SAT 94
[2024-03-19 05:44] LABS: Add Manual Diff / Slide Review NO; Basophils Absolute Auto 0 /uL (0-100); Basophils Percent Auto 0.3 % (0-2); Eosinophils Absolute Auto 0 /uL (0-450); Eosinophils Percent Auto 0.3 % (2-4); Hematocrit 36.6 % (41-53); Lymphocytes Absolute Auto 500 /uL (1100-4500); Lymphocytes Percent Auto 3.8 % (25-40); Mean Corpuscular HGB Conc 32.8 % (30-36); Mean Corpuscular Hemoglobin 28.8 PG (26-34); Mean Corpuscular Volume 87.8 fL (80-100); Monocytes Absolute Auto 800 /uL (0-900); Monocytes Percent Auto 5.9 % (3-14); Neutrophils Absolute Auto 12500 /uL (1500-7000); Neutrophils Percent Auto 89.7 % (50-75); Platelet Count 115 X10^3/uL (150-400); Red Blood Cell Count 4.16 X10^6/uL (4.5-5.9); Red Cell Distribution Width 17.1 % (11.6-14.8)
[2024-03-19] MEDS: SODIUM CHLORIDE 0.9% 1,000 ML 100 ML IV ×2 (05:47→16:08)
[2024-03-19 05:57] LABS: BUN Creatinine Ratio 21.6 (6-22); Blood Urea Nitrogen 38 mg/dL (9-20); Calcium 7.7 mg/dL (8.4-10.2); Carbon Dioxide 21 mmol/L (22-32); Chloride 111 mmol/L (98-107); Estimated Glomerular Filt Rate 39 mL/min (>60); Glucose 88 mg/dL (80-110); HEMOLYSIS < 15 (0-50); Potassium 4.7 mmol/L (3.4-5.1); Sodium 137 mmol/L (137-145)
[2024-03-19 06:00] VITALS: BP 91/52; PULSE 69; RESP 18; TEMP 37.3; O2SAT 95
[2024-03-19 08:00] VITALS: BP 103/61; PULSE 71; RESP 16; TEMP 36.6; O2SAT 98
[2024-03-19] MEDS: HEPARIN 5,000 UNIT/ML VIAL 5000 UNIT SUBCUT ×2 (10:14→21:08)
[2024-03-19] MEDS: ATORVASTATIN 20 MG TABLET 40 MG PO (10:14)
[2024-03-19] MEDS: cefTRIAXone 1,000 MG in SODIUM CHLORIDE 0.9% 100 ML 200 MG IV (10:15)
--- NOTE | 2024-03-19 10:55 | P.PN_ITS ---
Subjective Subjective Interval history: He was admitted with cellulitis and his leg is marginally improved today. He denies any pain. No chest pain, palpitations, or shortness a breath. Exam Vital Signs (past 8 hours): - 03/19/24 06:00 03/19/24 08:00 Temperature 99.2 F 97.8 F Pulse Rate 69 71 Respiratory Rate 18 16 Blood Pressure 91/52 L 103/61 Pulse Oximetry 95 98 Oxygen Delivery Method Room Air Narrative Exam Narrative: NAD, alert and oriented. Fluent speech. Lungs are clear, normal rate and effort. Heart is regular, no murmur gallop or rub. Abdomen is soft, non distended. Extremities are free of edema. The right leg [id number] is still red. There is an area of ulceration. There is no discharge. There is no fluctuance. The rash appears to be consistent with a diffuse streptococcal infection.. Objective Labs 03/19/24 05:22 03/19/24 05:22 Labs: Laboratory Results - last 24 hr 03/18/24 03/19/24 15:18 05:22 WBC 19.6 H 14.0 H RBC 4.88 4.16 L Hgb 14.2 12.0 L Hct 42.5 36.6 L MCV 87.1 87.8 MCH 29.0 28.8 MCHC 33.3 32.8 RDW 16.7 H 17.1 H Plt Count 156 115 L Neut % (Auto) 92.1 H 89.7 H Lymph % (Auto) 2.0 L 3.8 L [place] % (Auto) 5.4 5.9 Eos % (Auto) 0.3 L 0.3 L Baso % (Auto) 0.2 0.3 Neut # (Auto) 33649 H 40143 H Lymph # (Auto) 400 L 500 L [place] # (Auto) 1100 H 800 Eos # (Auto) 100 0 Baso # (Auto) 0 0 PT 15.3 H INR 1.3 APTT 31 Sodium 136 L 137 Potassium 4.9 4.7 Chloride 103 111 H Carbon Dioxide 25 21 L BUN 40 H 38 H Creatinine 2.10 H 1.76 H Estimated GFR 31 L 39 L BUN/Creatinine Ratio 19.0 21.6 Glucose 100 88 Lactate 1.7 Calcium 8.9 7.7 L Total Bilirubin 1.5 H AST 23 ALT 25 Alkaline Phosphatase 59 Total Protein 7.1 Albumin 4.2 Globulin 2.9 Albumin/Globulin Ratio 1.4 Lipase 84 Procalcitonin 3.78 H [facility] Social History household members: spouse Smoking Status: Never smoker alcohol intake: never Assessment & Plan Assessment & Plan narrative: 1. Right leg cellulitis, present on admission and active. 2. Hypertension, present on admission and stable. 3. Hyperlipidemia, present on admission and stable. 4. CAD with 2 coronary sense, present on admission and stable. 5. AICD, present on admission and stable. 6. BPH, present on admission and stable. Plan: -the leg is not improved enough to be discharge. He will require another night of IV antibiotics. We will continue to elevate and monitor blood pressure. -continue IV ceftriaxone, leg elevation, monitor blood cultures. -Stop IV fluids for mild hypotension emergency department. -resume all usual medications other than holding blood pressure medications today due to relatively lower blood pressures of 103/61. JACQUELYN/Dispo: Likely home on March 20 with oral antibiotics if the leg infection improve sufficiently. Time-Based Coding :: [TOTAL MINUTES] spent with patient and on the chart (including review of chart, obtaining history, exam, reviewing outside data, placing orders, documenting exam and treatment plan, and counseling patient) on [DATE]. Quality VTE Deep Vein Thrombosis/Pulmonary Embolism Present on Admission: No
[2024-03-19 12:00] VITALS: BP 101/67; PULSE 61; RESP 16; TEMP 36.7; O2SAT 98
--- NOTE | 2024-03-19 13:59 | CM.DANOTE ---
Patient is a 78 yo male who was admitted OBS on 03/18/24 for Right Leg Cellulitis. Pt has [facility] for insurance and his PCP is Dr. Hank Desai and Shirt Ironer Supervisor Dr. Voss. EMR was reviewed. Per MD, pt with hx of stents and pacemaker and admitted for IV-Abx for a few days and then likely discharge on po abx. Pain is better managed now. SW met bedside with pt and explained role and pt confirms he lives at home in [place] with his spouse and he is independent at baseline and does not use DME for ambulation. Pt drives and denies any hx of HH or SNF. Pt states that he has a hx of cellulitis once before but was able to be managed in the outpt setting. Pt does not anticipate any discharge planning needs and confirms spouse will provide transport at d/c. Pt has DPOA and thinks it's his and then his oldest son who lives in [place] near [place]. SW confirmed that pt has ambulated independently in room with steady gait and pain is better. Plan: SW to follow for plan of discharge home with spouse and po abx and any further identified discharge planning needs. 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 Yes Advance Directives on File No History Provided By Patient,Medical Record Has Patient been admitted in last 30 No days? Prior Living Arrangements House Household Members spouse Type of transporation used prior to Drives own vehicle admit Independent with ADL's Yes Is patient alert and oriented? Yes Caregiver for Another No Barriers to Discharge No Discharge Plan Home Transportation Arrangement spouse to provide transport Referrals Initiated None needed Whiteboard Updated in Patient Room with Yes name and ext. # of Upholstery Auto Trimmer Review Status In Process Please Provide Date Initial DC 03/19/24 Assessment Was Performed Next Review Type Continued Stay Review
[2024-03-19 16:00] VITALS: BP 94/61; PULSE 68; RESP 16; TEMP 36.7; O2SAT 99
[2024-03-19 19:25] LABS: MRSA (Nasal) PCR NOT DETECTED (Not Detect)
[2024-03-19 20:00] VITALS: BP 124/66; PULSE 64; RESP 16; TEMP 36.8; O2SAT 97
[2024-03-19] MEDS: TAMSULOSIN 0.4 MG CAPSULE PO (21:08)
[2024-03-20] VITALS: BP 98/57; PULSE 54; RESP 18; TEMP 36.6; O2SAT 98
[2024-03-20] MEDS: SODIUM CHLORIDE 0.9% 1,000 ML 100 ML IV (01:46)
[2024-03-20 06:00] VITALS: BP 111/65; PULSE 54; RESP 54; TEMP 36.9; O2SAT 96
[2024-03-20 06:59] LABS: Add Manual Diff / Slide Review NO; Basophils Absolute Auto 100 /uL (0-100); Basophils Percent Auto 0.5 % (0-2); Eosinophils Absolute Auto 100 /uL (0-450); Eosinophils Percent Auto 0.9 % (2-4); Hematocrit 34.4 % (41-53); Hemoglobin 11.3 g/dL (13.5-17.5); Lymphocytes Absolute Auto 800 /uL (1100-4500); Lymphocytes Percent Auto 7.4 % (25-40); Mean Corpuscular HGB Conc 32.8 % (30-36); Mean Corpuscular Hemoglobin 28.8 PG (26-34); Mean Corpuscular Volume 87.6 fL (80-100); Monocytes Absolute Auto 800 /uL (0-900); Monocytes Percent Auto 7.4 % (3-14); Neutrophils Absolute Auto 8600 /uL (1500-7000); Neutrophils Percent Auto 83.8 % (50-75); Platelet Count 111 X10^3/uL (150-400); Red Blood Cell Count 3.93 X10^6/uL (4.5-5.9); Red Cell Distribution Width 17.3 % (11.6-14.8); White Blood Cell Count 10.3 X10^3/uL (4.5-11.0)
[2024-03-20 07:11] LABS: BUN Creatinine Ratio 22.8 (6-22); Blood Urea Nitrogen 36 mg/dL (9-20); Calcium 7.9 mg/dL (8.4-10.2); Carbon Dioxide 19 mmol/L (22-32); Chloride 113 mmol/L (98-107); Estimated Glomerular Filt Rate 44 mL/min (>60); Glucose 88 mg/dL (80-110); HEMOLYSIS < 15 (0-50); Potassium 4.3 mmol/L (3.4-5.1); Sodium 139 mmol/L (137-145)
[2024-03-20 08:00] VITALS: BP 114/80; PULSE 71; RESP 16; TEMP 36.6; O2SAT 97
[2024-03-20] MEDS: cefTRIAXone 1,000 MG in SODIUM CHLORIDE 0.9% 100 ML 200 MG IV (09:13)
[2024-03-20] MEDS: HEPARIN 5,000 UNIT/ML VIAL 5000 UNIT SUBCUT (09:13)
[2024-03-20] MEDS: ATORVASTATIN 20 MG TABLET 40 MG PO (09:14)
--- NOTE | 2024-03-20 09:37 | P.DS_ITS ---
History of Present Illness History of Present Illness Date Patient Seen: 03/20/24 Time Patient Seen: 09:37 Chief complaint: leg px sent by [facility] Narrative: Per admitting provider, 78-year-old male with history of hypertension, dyslipidemia, coronary artery disease with 2 cardiac stents and defibrillator/pacemaker, BPH on aspirin daily who presents with complaint of abrasion or scraped his anterior leg several days ago. They noticed some increasing redness in the last 1-2 days has spread into the foot and up the leg today. No fevers but patient describes rigors and sweats. No chest pain or shortness of breath. No nausea or vomiting. No issues with bowel movements or urination. Patient states legs quite painful to ambulate on. He denies any numbness or tingling. He states at rest it is not painful. Has not had a lot of purulent discharge. He is unsure if his tetanus has been updated recently. States he takes medication for hypertension, dyslipidemia aspirin daily and BPH. Patient is not on any diuretics. Has had prior cardiac stents defibrillator pacemaker but denies any other prior surgeries. Has adverse reaction to Sudafed with urinary retention but no other drug allergies. No tobacco, alcohol or recreational drugs. Dr. Desai is his primary care physician. Dr. Voss is his senior corporate strategy manager. S: He has having a lot of pain with the leg. He also notes that this has been turning red since he abraded at last Saturday. The patient denies any edema. He was having no no history of MRSA. He has been having chills and possibly low- grade fevers. He has no history of cellulitis. He does have an ICD as well as 2 coronary stents. He denies recent chest pain, palpitations, shortness a breath, leg edema. No URI symptoms including rhinorrhea, or sore throat. Discharge Providers Provider Date of admission: 03/18/24 18:07 Discharge Date: 03/20/24 Primary care physician: Hank Desai MD Discharge provider: Jaya Rosen DO Summary Hospital Course Discharge Diagnosis: 1. Right leg cellulitis, present on admission and active. 2. Hypertension, present on admission and stable. 3. Hyperlipidemia, present on admission and stable. 4. CAD with 2 coronary sense, present on admission and stable. 5. AICD, present on admission and stable. 6. BPH, present on admission and stable. 7. CHFrEF Hospital Course: This is a 78 year old male admitted with a Right leg cellulitis. He did improved after a couple of days of IV ceftriaxone. On the day of discharge his leg was much improved, and he was transitioned to cephalexin as an outpatient. No other changes to his home medications were recommended on discharge. Patient with history of systolic heart failure, no acute exacerbation this admission, he is on lisinopril and metoprolol at discharge. Time Spent with Patient Time spent: Less than 30 minutes Exam Vital Signs (past 8 hours): - 03/20/24 06:00 03/20/24 08:00 Temperature 98.5 F 97.8 F Pulse Rate 54 L 71 Respiratory Rate 54 H 16 Blood Pressure 111/65 114/80 Pulse Oximetry 96 97 Oxygen Flow Rate 0 Oxygen Delivery Method Room Air Oxygen Flow Rate 0 Narrative Exam Narrative: NAD, alert and oriented. Fluent speech. Lungs are clear, normal rate and effort. Heart is regular, no murmur gallop or rub. Abdomen is soft, non distended. Extremities are free of edema. improved R leg ertyhema, warmth. Objective Labs 03/20/24 06:29 03/20/24 06:29 Labs: Laboratory Results - last 24 hr 03/19/24 03/20/24 17:11 06:29 WBC 10.3 RBC 3.93 L Hgb 11.3 L Hct 34.4 L MCV 87.6 MCH 28.8 MCHC 32.8 RDW 17.3 H Plt Count 111 L Neut % (Auto) 83.8 H Lymph % (Auto) 7.4 L Gilmer % (Auto) 7.4 Eos % (Auto) 0.9 L Baso % (Auto) 0.5 Neut # (Auto) 8600 H Lymph # (Auto) 800 L Gilmer # (Auto) 800 Eos # (Auto) 100 Baso # (Auto) 100 Sodium 139 Potassium 4.3 Chloride 113 H Carbon Dioxide 19 L BUN 36 H Creatinine 1.58 H Estimated GFR 44 L BUN/Creatinine Ratio 22.8 H Glucose 88 Calcium 7.9 L Nasal Screen MRSA (PCR) Not detected PFSH Social History household members: spouse Smoking Status: Never smoker alcohol intake: never Discharge Plan Discharge Plan Patient Disposition: Home Provider Discharge Comment: You were admitted to the hospital with a right leg infection, improved with antibiotics, continue treatment for another few days at home, please finish entire course of antibiotics with first pill to start tomorrow. Discharge orders & Medications Prescriptions: New cephalexin 500 mg capsule 500 mg PO QID 5 Days Qty: 20 0RF Continued lisinopril 10 mg tablet 10 mg PO DAILY metoprolol tartrate 25 mg tablet 25 mg PO DAILY atorvastatin [Lipitor] 40 mg tablet 40 mg PO DAILY methocarbamol 500 mg tablet 500 mg PO TID PRN (Reason: muscle pain) Qty: 20 0RF diclofenac sodium [Voltaren Arthritis Pain] 1 % gel 2 g topical QID PRN (Reason: muscle pain) Qty: 100 0RF Rx Instructions: apply to single elbow, wrist or hand; for hand includes palm/fingers/back of hand lidocaine 5 % adhesive patch,medicated 1 patch topical DAILY PRN (Reason: muscle pain) Qty: 15 0RF Rx Instructions: leave on most painful area for up to 12 hrs tamsulosin 0.4 mg capsule 0.4 mg PO BEDTIME Follow up/Referrals: Hank Desai MD [Primary Care Provider] - Discharge Health Status Multidrug resistant organism: No MDRO Diet/Activity/Treatments Diet: Diet as Tolerated and Regular Activity: As tolerated, no restrictions Visit Report/Discharge Packet Instructions: DI for Cellulitis -- Adult, How to Prevent Falls Stand Alone Forms: Patient Portal/API, Stroke Signs & Symptoms Discharge Data Primary Care Provider: Hank Desai Attending Provider: Hernandez Vaughan Admit Date/Time: 03/18/24 18:07 Quality VTE Deep Vein Thrombosis/Pulmonary Embolism Present on Admission: No MIPS - DC The patient has a history of heart transplant or Left Ventricular Assist Device (LVAD). If yes, STOP here.: No The patient has current or prior documentation of left ventricular ejection fraction (LVEF) less than or equal to 40%, or moderate or severely depressed left ventricular systolic function.: Yes A. The patient was prescribed or already taking an Angiotensin-Converting Enzyme (MIKAELA) Inhibitor, or Angiotensin Receptor Rosalinda (ARB).: Yes
--- NOTE | 2024-03-20 10:07 | CM.SWNOTE ---
DCP Continued Reviewed EMR and team rounds for pt?s medical status. No new discharge needs identified at this time. Discharge orders are in, 03/20. Plan: Anticipating discharge with spouse and po abx. CM Team will continue to follow for coordination of discharge plans. ELIS Marc
--- NOTE | 2024-03-20 11:57 | PC.NURSE ---
[facility] d/c'ed. All belongings with patient. Provided discharge education on cellulitis, wound care, and falls to pt and pt's . Pt and stated all questions answered. Pt escorted to exit via wheelchair by RAISSA Pabon.
== END 2024-03-20 11:51 | disposition home or self-care (01) ==
LOC: ED 15:47 → AC 18:08
PROVIDERS: Admitting Provider Hospitalist; Emergency Provider Emergency Medicine; PCP Internal Medicine; Referring Provider Emergency Medicine; Visit Provider Hospitalist
DX: L03.115 Cellulitis of right lower limb (principal); I11.0 Hypertensive heart disease with heart failure; I50.20 Unspecified systolic (congestive) heart failure; E78.5 Hyperlipidemia, unspecified; N40.0 Benign prostatic hyperplasia without lower urinary tract symptoms; I25.10 Atherosclerotic heart disease of native coronary artery without angina pectoris; Z95.0 Presence of cardiac pacemaker; Z95.818 Presence of other cardiac implants and grafts
CPT/HCPCS: 36415; 71045; 73590; 80048; 80053; 83605; 83690; 84145; 85025; 85610; 85730; 87040; 87070; 87147; 87205; 87797; 93005; 93010; 96361; 96365; 96366; 96367; 96372; 99284; G0378; J0696; J1644

== ENCOUNTER → 2024-04-22 07:31 | Outpatient (CLI) | payer OTHER, SELFPAY ==
[2024-03-18 20:33] VITALS: BMI 23.6
[2024-04-22 09:16] LABS: BUN Creatinine Ratio 29.3 (6-22); Blood Urea Nitrogen 46 mg/dL (9-20); Calcium 9.1 mg/dL (8.4-10.2); Carbon Dioxide 23 mmol/L (22-32); Chloride 104 mmol/L (98-107); Cholesterol 122 mg/dL (140-199); Estimated Glomerular Filt Rate 45 mL/min (>60); Glucose 90 mg/dL (80-110); HDL Cholesterol 33 mg/dL (40-60); HEMOLYSIS 16 (0-50); LDL Cholesterol Calculated 66 mg/dL (<100); Potassium 4.8 mmol/L (3.4-5.1); Sodium 136 mmol/L (137-145); Triglycerides 116 mg/dL (35-150)
== END ==
PROVIDERS: PCP Internal Medicine; Referring Provider Internal Medicine Cardiovascular Disease; Visit Provider Internal Medicine Cardiovascular Disease
DX: E78.5 Hyperlipidemia, unspecified (principal)
CPT/HCPCS: 36415; 80048; 80061

== ENCOUNTER → 2024-04-29 07:22 | Outpatient (CLI) | payer OTHER, SELFPAY ==
[2024-03-18 20:33] VITALS: BMI 23.6
[2024-04-29 08:48] LABS: BUN Creatinine Ratio 23.6 (6-22); Blood Urea Nitrogen 42 mg/dL (9-20); Calcium 9.5 mg/dL (8.4-10.2); Carbon Dioxide 26 mmol/L (22-32); Chloride 104 mmol/L (98-107); Cholesterol 127 mg/dL (140-199); Estimated Glomerular Filt Rate 38 mL/min (>60); Glucose 96 mg/dL (80-110); HDL Cholesterol 37 mg/dL (40-60); HEMOLYSIS < 15 (0-50); LDL Cholesterol Calculated 72 mg/dL (<100); Potassium 4.7 mmol/L (3.4-5.1); Sodium 137 mmol/L (137-145); Triglycerides 92 mg/dL (35-150)
== END ==
LOC: LAB 07:25
PROVIDERS: PCP Internal Medicine; Referring Provider Internal Medicine Cardiovascular Disease; Visit Provider Internal Medicine Cardiovascular Disease
DX: E78.5 Hyperlipidemia, unspecified (principal)
CPT/HCPCS: 36415; 80048; 80061

== ENCOUNTER → 2024-09-18 07:38 | Outpatient (CLI) | payer OTHER, SELFPAY ==
[2024-03-18 20:33] VITALS: BMI 23.6
[2024-09-18 09:23] LABS: Alanine Aminotransferase 23 IU/L (<50); Albumin 4.4 g/dL (3.5-5.0); Albumin Globulin Ratio 2.1 (1.0-2.8); Alkaline Phosphatase 62 U/L (38-126); Aspartate Aminotransferase 27 IU/L (17-59); BUN Creatinine Ratio 17.5 (6-22); Bilirubin Total 0.7 mg/dL (0.2-1.3); Blood Urea Nitrogen 29 mg/dL (9-20); Calcium 9.8 mg/dL (8.4-10.2); Carbon Dioxide 30 mmol/L (22-32); Chloride 104 mmol/L (98-107); Cholesterol 134 mg/dL (140-199); Estimated Glomerular Filt Rate 42 mL/min (>60); Globulin 2.1 g/dL (1.7-4.1); Glucose 90 mg/dL (80-110); HDL Cholesterol 39 mg/dL (40-60); HEMOLYSIS < 15 (0-50); LDL Cholesterol Calculated 69 mg/dL (<100); Potassium 4.2 mmol/L (3.4-5.1); Sodium 139 mmol/L (137-145); Total Protein 6.5 g/dL (6.3-8.2); Triglycerides 128 mg/dL (35-150)
== END ==
PROVIDERS: PCP Internal Medicine; Referring Provider Nurse Practitioner Acute Care; Visit Provider Nurse Practitioner Acute Care
DX: I25.9 Chronic ischemic heart disease, unspecified (principal)
CPT/HCPCS: 36415; 80053; 80061

== ENCOUNTER → 2025-04-08 13:53 | Outpatient (CLI) | payer OTHER, SELFPAY ==
[2024-03-18 20:33] VITALS: BMI 23.6
--- NOTE | 2025-04-08 13:55 | DI.ECHO.S_ITS ---
[facility]+ [facility] : : [address] : [place] : : [id number] : : Phone: [phone] Echocardiogram Report + + :Name: PHILIP VYAS V Study Date: 04/08/2025 Height: 71 in : :[facility] ReadingLocation: Weight: 155 lb : : Gender: Male BSA: 1.9 m2 : :: 1945 Age: 79 yrs BP: 122/75 mmHg: :Reason For Study: ISCHEMIC CARDIOMYOPATHY : :Ordering Physician: KRISTI, : :ASHIA Performed By: Watson Lange : :Referring: ASHIA BERRY : + + Interpretation Summary The left ventricle is normal in size. The ejection fraction is estimated to be 30-35%. There has been no significant change in LVEF since the previous exam. The right ventricle is normal in size and function. There is a pacemaker lead in the right ventricle. There is mild mitral regurgitation. Compared to the prior echo study, there has been no change in the severity of mitral regurgitation. There is mild tricuspid regurgitation. Compared to the prior echo exam, there has been no change in TR severity. The right ventricular systolic pressure is estimated to be at least 29 mmHg based on an estimated right atrial pressure of 3 mm Hg. Mild atherosclerotic plaque in the aortic arch. Unchanged. Ascending aorta 4.1 cm in diameter. Previously 3.8 cm. Prior to that 4.2 cm. Procedure: A two-dimensional transthoracic echocardiogram with color flow and Doppler was performed. The study quality was technically good. Comparison is made with the echocardiogram of 04/12/2021. The patient had occasional PVCs during the exam. The patient was in sinus bradycardia with heart rates between 50-58 bpm during the exam. Left Ventricle: The left ventricle is normal in size. There is normal left ventricular wall thickness. There is no ventricular septal defect visualized. There is no thrombus. The ejection fraction is estimated to be 30-35%. There has been no significant change since the previous exam. There is moderate to severe global hypokinesis of the left ventricle. There is apical akinesis. There is apical septal wall akinesis. There is mid inferoseptal wall akinesis. There is apical inferior wall akinesis. There is mid anteroseptal wall akinesis. Compared to the prior exam, the left ventricular wall motion has not changed. MV E/A: 0.87 Med Peak E' Keven: 4.8 cm/sec E/E' med: 11.4. Right Ventricle: The right ventricle is normal in size and function. There is a pacemaker lead in the right ventricle. Atria: The left atrium is mildly dilated. There has been no significant change since the previous study. The right atrium grossly appears normal in size. The interatrial septum is not well visualized. Mitral Valve: The mitral valve leaflets appear mildly thickened. There is mild mitral annular calcification. The mitral valve leaflets are slightly calcified. There is mild mitral regurgitation. Compared to the prior echo study, there has been no change in the severity of mitral regurgitation. Aortic Valve: The aortic valve is trileaflet. The aortic valve opens well. There is no aortic valve stenosis. No aortic regurgitation is present. Tricuspid Valve: The tricuspid valve is not well visualized, but is grossly normal. There is mild tricuspid regurgitation. The right ventricular systolic pressure is estimated to be at least 29 mmHg based on an estimated right atrial pressure of 3 mm Hg. Compared to the prior echo exam, there has been no change in TR severity. Pulmonic Valve: The pulmonic valve is not well seen, but is grossly normal. There is no pulmonic valvular regurgitation. Great Vessels: The aortic root is normal size. The ascending aorta is mild- moderately enlarged. Mild atherosclerotic plaque(s) in the aortic arch. The pulmonary artery is normal size. The IVC is of normal diameter and collapses greater than 50% with a sniff. This suggests a low right atrial pressure of 3 mm Hg. Pericardium/ Pleura There is no pericardial effusion. There is an anterior echo-free space consistent with a fat pad. There is no pleural effusion. MMode/2D Measurements & Calculations LVIDd: 5.6 cm LVOT diam: 2.2 cm LVIDs: 5.1 cm Ao root diam: 3.5 cm FS: 9.4 % asc Aorta Diam: 4.1 cm EPSS: 1.4 cm IVSd: 1.1 cm LVPWd: 1.2 cm LV ambrose. diameter/BSA (cm/m^2): 3.0 LV sys. diameter/BSA (cm/m^2): 2.7 LA A2 area: 20.7 cm2 RA long axis: 5.4 cm LA A4 area: 23.4 cm2 RA area: 15.7 cm2 LA length (vol): 6.3 cm RA vol: 38.8 ml LA vol: 65.0 ml RA : 20.5 ml/m2 LA vol index: 34.4 ml/m2 IVC diam: 1.7 cm RVD1 (basal): 3.4 cm RVD2 (mid): 2.4 cm TAPSE: 1.8 cm Doppler Measurements & Calculations Ao V2 max: 124.5 cm/sec LVOT Max Keven: 106.0 cm/sec Ao V2 mean: 93.1 cm/sec LV V1 max P.5 mmHg Ao max P.2 mmHg LV V1 VTI: 23.8 cm Ao mean P.7 mmHg ESTELLE(I,D): 3.1 cm2 Ao V2 VTI: 28.4 cm ESTELLE(V,D): 3.1 cm2 sev ratio: 0.84 ESTELLE indexed to BSA (cm^2/m^2): 1.6 MV E max keven: 55.2 cm/sec TR max keven: 254.1 cm/sec MV A max keven: 63.2 cm/sec TR max P.8 mmHg MV E/A: 0.87 PA V2 max: 90.7 cm/sec Med Peak E' Keven: 4.8 cm/sec PA V2 mean: 59.5 cm/sec E/E' med: 11.4 PA mean P.6 mmHg Lat Peak E' Keven: 6.2 cm/sec PA pr(Accel): 53.3 mmHg E/E' lat: 8.9 E/e' average: 10.2 MV dec time: 0.23 sec SV(LVOT): 87.9 ml Reading Physician:03:55 PM
== END ==
LOC: ECHO 13:55
PROVIDERS: Family Provider Internal Medicine; PCP Internal Medicine; Referring Provider Internal Medicine Cardiovascular Disease; Visit Provider Internal Medicine Cardiovascular Disease
DX: I08.1 Rheumatic disorders of both mitral and tricuspid valves (principal); I25.5 Ischemic cardiomyopathy; I70.0 Atherosclerosis of aorta; R00.1 Bradycardia, unspecified; I49.3 Ventricular premature depolarization; I77.810 Thoracic aortic ectasia; Z95.0 Presence of cardiac pacemaker
CPT/HCPCS: 93306

== ENCOUNTER 2025-05-31 13:45 | Outpatient (RCR) | payer OTHER, SELFPAY ==
[2024-03-18 20:33] VITALS: BMI 23.6
--- NOTE | 2025-04-08 19:41 | PT.OIE ---
Current Diagnoses Primary osteoarthritis, right hand (04/08/25) Primary osteoarthritis, left hand (04/08/25) Visit Care Team Role Provider Type Hank Desai MD Attending Provider Non-Staff Family Provider Primary Care Provider Referring Provider Specialty: Internal Medicine Address: [facility] [place], [address] Email: Physical Therapy Initial Evaluation PT-OP-A Visit Information Start: 04/04/25 17:14 Freq: Status: Active Protocol: Document 04/08/25 07:30 LRN (Rec: 04/08/25 09:08 LRN Laptop) Out-Patient Physical Therapy Visit Information Visit Information Visit Type Initial Evaluation Visit Start Time 07:30 Visit Stop Time 08:21 Visit Number 1 Evaluation Information Evaluation Date 04/08/25 Precautions Precautions Heart Attack PT-OP-B Current Condition Start: 04/04/25 17:14 Freq: Status: Active Protocol: Document 04/08/25 07:30 LRN (Rec: 04/08/25 09:08 LRN Laptop) Current Condition History of Current Condition Onset Date 2 yrs ago Current Complaints Finger deformation and stiffness. History of Current 2 yrs ago deformation started (with both index fingers) Condition , and had difficulty bending his fingers. Last year was not as bad, but this year it has worsened. 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 He states R hand pain stiffness in the thumb, index and end joint of middle finger; L hand stiffness in the thumb, index and little finger, although the little finger has been feeling better. Pt is L handed. 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 Effect Therapy/ Recovery PT-OP-C Subjective Start: 04/04/25 17:14 Freq: Status: Active Protocol: Document 04/08/25 07:30 LRN (Rec: 04/08/25 09:08 LRN Laptop) Patient Questionnaires Quick Dash- Upper Extremity Quick Dash UE Score 10.42 OP-PT Pain Assessment Location L hand Pain Location Thumb CMC/MCP jt, index and little finger PIP and DIP Details jts Pain Intensity 4-5 Scale Used Numeric (0 - 10) Description Sharp,Stabbing Pain Alleviating Heat Factors Pain Aggravating Activity Factors Other Pain Working a lot with the hands Aggravating Factors Comment Thumb pain has been eliminated with reduction in use of sugar R hand Pain Location Thumb MCP/CMC jt, index finger PIP/DIP jts and middle Details finger DIP jt. Pain Intensity 5 Scale Used Numeric (0 - 10) Description Sharp,Stabbing Description- Other 4-5 Frequency Intermittent Pain Alleviating Heat Factors Pain Aggravating Activity Factors Other Pain Working a lot with the hands Aggravating Factors Comment Thumb pain has been eliminated with reduction in use of sugar PT-OP-F Manual Assessment Start: 04/04/25 17:14 Freq: Status: Active Protocol: Document 04/08/25 07:30 LRN (Rec: 04/08/25 09:08 LRN Laptop) Manual Assessments Joint Mobility Assessment Joint Mobility R hand: De creased mobility and tenderness at Thumb Assessment MCP jt, Index finger MCP, PIP, DIP jts, Middle finger DIP jt, L hand: Decreased mobility at Thumb MCP/IP jt, Index finger PIP & DIP jts, currently no discomfort at little finger PIP/DIP jts. PT-OP-H Neuro Start: 04/04/25 17:14 Freq: Status: Active Protocol: Document 04/08/25 07:30 LRN (Rec: 04/08/25 09:08 LRN Laptop) Sensation Evaluation Gross Sensation Gross Sensation WNL PT-OP-J Posture/Palpation/Skin Start: 04/04/25 17:14 Freq: Status: Active Protocol: Document 04/08/25 07:30 LRN (Rec: 04/08/25 09:08 LRN Laptop) Posture Evaluation Position Standing Head/C-Spine Posture Forward Head T-Spine Posture Rotation Right Shoulder Posture (L) Elevated Palpation Assessment Location L hand Palpation Location Index & Little Finger & Thumb joints Palpation Findings Soft Tissue Tightness Palpation Details Denies tenderness at joints. R hand Palpation Location Index & Middle Finger & Thumb joints Palpation Findings Soft Tissue Tightness,Tenderness Palpation Details Tenderness of Index finger PIP and DIP jt and Middle finger DIP jt. Thump MCP jt PT-OP-K Range of Motion Start: 04/04/25 17:14 Freq: Status: Active Protocol: Document 04/08/25 07:30 LRN (Rec: 04/08/25 09:08 LRN Laptop) Finger Goniometric Range of Motion Finger Left Fifth MCP Flexion Active ( 95 degrees) PIP Flexion Active ( 94 degrees) DIP Flexion Active ( 96 H 70-90 degrees) Right Fifth MCP Flexion Active ( 90 degrees) PIP Flexion Active ( 90 degrees) DIP Flexion Active ( 80 70-90 degrees) Left Second PIP Flexion Active ( 80 degrees) DIP Flexion Active ( 62 L 70-90 degrees) Right Second PIP Flexion Active ( 64 degrees) DIP Flexion Active ( 43 L 70-90 degrees) Thumb Goniometric Range of Motion Thumb Right Thumb ROM WFL No MCP Flexion Active ( 43 degrees) IP Flexion Active ( 65 degrees) Left Thumb ROM WFL No MCP Flexion Active ( 47 degrees) IP Flexion Active ( 68 degrees) PT-OP-M Strength Start: 04/04/25 17:14 Freq: Status: Active Protocol: Document 04/08/25 07:30 LRN (Rec: 04/08/25 09:08 LRN Laptop) Finger/Thumb Strength Finger Manual Muscle Testing Left Second Flexion (fingers C8) 4+ Good+ Extension (thumb C8) 3+ Fair+ Left Thumb Flexion (fingers C8) 5 Normal Hand 911 Emergency Services Dispatcher/Pinch Strength Hand Dominance Hand Dominance Left Hand Strength Left Tip Pinch (lbs) 8.2 Comments Tip Pinch 3 trials (lbs): Left index and thumb is 8.5, 7, 9 (avg 8.2#) Right Palmar Pinch (lbs) 4.3 Comments Tip Pinch 3 trials (lbs): Right index and thumb is 4.5 , 4, 4.5 (avg 4.3#) PT-OP-Q Treatments Start: 04/04/25 17:14 Freq: Status: Active Protocol: Document 04/08/25 07:30 LRN (Rec: 04/08/25 09:08 LRN Laptop) Self-Care/Home Management Treatment Education Other Education Pt lead discussion on effect of sugar on his joints, as pt has noticed reduction of sugar has decreased his pain. Suggested pt education in oxidative vs anti- oxidant foods for self care, and seek beam saw operator for information. Discussed results of evaluation, goals, treatment, and plan of care (POC) with pt; pt agreeable to evaluation, goals, treatment and POC. Activities Self-Care/Home Instructed pt in finger extension exercise using light Management rubber band at each joint, but not to exercise with Activities pain. PT-OP-T Assessment and Plan Start: 04/04/25 17:14 Freq: Status: Active Protocol: Document 04/08/25 07:30 LRN (Rec: 04/08/25 09:08 LRN Laptop) Physical Therapy Assessment Rehab Potential Rehabilitation Fair Potential Evaluation Complexity Number of Personal 1-2 Factors/ Comorbidities Number of Body 4 or More Systems Impaired Clinical Evolving Presentation at Evaluation Impairments Impairments Pain,ROM,Strength Other Impairments Joint deformity Goals Three Impairment Dec'd thumb-index finger pinch & thumb/index/middle finger ext strength Plastics Fitter Goal (LTG) Improve thumb and finger pinch strength to 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 LTG Duration 06/03/25 Two Impairment Dec'd javid thumb, index finger and R middle finger AROM Short Term Goal (STG Pt will be educated in self care hot/cold treatments to ) improve AROM. STG Duration 04/30/25 Group Home Goal (LTG) Pt will improve ability to type with less amount of mis -typing reported. LTG Duration 06/03/25 One Impairment Pt lacks self care HEP Short Term Goal (STG Pt will be educated in adaptive measures to limit ) finger deformation (Oval 8 rings) STG Duration 04/30/25 Plastics Fitter Goal (LTG) Pt will be independent with a self care HEP of hand/ wrist ROM and strengthening exercise. 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 The pt's pain has decreased in his L hand with reportedly reduction of sugar in his diet. The pt will probably need external bracing to prevent further deformity and should consider seeing a hand specialist for his bracing needs . The pt will benefit from physical therapy for ROM and strengthening exercises to reduce pain, and education in self care for pain management and consideration in adaptive equipment. The pt would benefit from an occupational therapy consult as he may need further guidance to help him with his typing needs . Physical Therapy Plan Frequency and Duration Frequency of 2x/Week Treatment Duration of 8 treatment (weeks) Plan of Care Start 04/08/25 Date Plan of Care End 06/03/25 Date Therapeutic Interventions Therapeutic Home Exercise Program,Manual Therapy,Self-Care/Home Interventions Management,Therapeutic Activities,Therapeutic Exercises Modalities Cold Pack/Ice Massage,Paraffin Bath Next Visit Focus/Plan Next Note Type Treatment Note Next Visit Plan Next: Javid thumb, index finger, R DIP middle finger and L finger. Assess strength and extension mobility. Strengthening: finger, thumb extension > flexion. Education: hot/cold, self ROM, strengthening, protective measures (rings). Modalities: Paraffin dip. Recommend OT for adaptive equipment. POC: Pt education (hot/cold, self ROM, strengthening), Manual therapy, Therapeutic Exercises, modalities ( paraffin dip)
--- NOTE | 2025-04-08 19:44 | PT.OPPOC ---
Physical, Occupational & Speech Therapy At [facility] Current Diagnoses Primary osteoarthritis, right hand (04/08/25) Primary osteoarthritis, left hand (04/08/25) Visit Care Team Role Provider Type Hank Desai MD Attending Provider Non-Staff Family Provider Primary Care Provider Referring Provider Specialty: Internal Medicine Address: [address] [place] [address], [id number] Email: Plan Of Care PT-OP-A Visit Information Start: 04/04/25 17:14 Freq: Status: Active Protocol: Document 04/08/25 07:30 LRN (Rec: 04/08/25 09:08 LRN Laptop) Out-Patient Physical Therapy Visit Information Visit Information Visit Type Initial Evaluation Visit Start Time 07:30 Visit Stop Time 08:21 Visit Number 1 Evaluation Information Evaluation Date 04/08/25 Precautions Precautions Heart Attack PT-OP-B Current Condition Start: 04/04/25 17:14 Freq: Status: Active Protocol: Document 04/08/25 07:30 LRN (Rec: 04/08/25 09:08 LRN Laptop) Current Condition History of Current Condition Onset Date 2 yrs ago Current Complaints Finger deformation and stiffness. History of Current 2 yrs ago deformation started (with both index fingers) Condition , and had difficulty bending his fingers. Last year was not as bad, but this year it has worsened. 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 He states R hand pain stiffness in the thumb, index and end joint of middle finger; L hand stiffness in the thumb, index and little finger, although the little finger has been feeling better. Pt is L handed. 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 Effect Therapy/ Recovery PT-OP-C Subjective Start: 04/04/25 17:14 Freq: Status: Active Protocol: Document 04/08/25 07:30 LRN (Rec: 04/08/25 09:08 LRN Laptop) Patient Questionnaires Quick Dash- Upper Extremity Quick Dash UE Score 10.42 OP-PT Pain Assessment Location L hand Pain Location Thumb CMC/MCP jt, index and little finger PIP and DIP Details jts Pain Intensity 4-5 Scale Used Numeric (0 - 10) Description Sharp,Stabbing Pain Alleviating Heat Factors Pain Aggravating Activity Factors Other Pain Working a lot with the hands Aggravating Factors Comment Thumb pain has been eliminated with reduction in use of sugar R hand Pain Location Thumb MCP/CMC jt, index finger PIP/DIP jts and middle Details finger DIP jt. Pain Intensity 5 Scale Used Numeric (0 - 10) Description Sharp,Stabbing Description- Other 4-5 Frequency Intermittent Pain Alleviating Heat Factors Pain Aggravating Activity Factors Other Pain Working a lot with the hands Aggravating Factors Comment Thumb pain has been eliminated with reduction in use of sugar PT-OP-F Manual Assessment Start: 04/04/25 17:14 Freq: Status: Active Protocol: Document 04/08/25 07:30 LRN (Rec: 04/08/25 09:08 LRN Laptop) Manual Assessments Joint Mobility Assessment Joint Mobility R hand: De creased mobility and tenderness at Thumb Assessment MCP jt, Index finger MCP, PIP, DIP jts, Middle finger DIP jt, L hand: Decreased mobility at Thumb MCP/IP jt, Index finger PIP & DIP jts, currently no discomfort at little finger PIP/DIP jts. PT-OP-H Neuro Start: 04/04/25 17:14 Freq: Status: Active Protocol: Document 04/08/25 07:30 LRN (Rec: 04/08/25 09:08 LRN Laptop) Sensation Evaluation Gross Sensation Gross Sensation WNL PT-OP-J Posture/Palpation/Skin Start: 04/04/25 17:14 Freq: Status: Active Protocol: Document 04/08/25 07:30 LRN (Rec: 04/08/25 09:08 LRN Laptop) Posture Evaluation Position Standing Head/C-Spine Posture Forward Head T-Spine Posture Rotation Right Shoulder Posture (L) Elevated Palpation Assessment Location L hand Palpation Location Index & Little Finger & Thumb joints Palpation Findings Soft Tissue Tightness Palpation Details Denies tenderness at joints. R hand Palpation Location Index & Middle Finger & Thumb joints Palpation Findings Soft Tissue Tightness,Tenderness Palpation Details Tenderness of Index finger PIP and DIP jt and Middle finger DIP jt. Thump MCP jt PT-OP-K Range of Motion Start: 04/04/25 17:14 Freq: Status: Active Protocol: Document 04/08/25 07:30 LRN (Rec: 04/08/25 09:08 LRN Laptop) Finger Goniometric Range of Motion Finger Measured in Degrees Left Fifth MCP Flexion Active ( 95 degrees) PIP Flexion Active ( 94 degrees) DIP Flexion Active ( 96 H 70-90 degrees) Right Fifth MCP Flexion Active ( 90 degrees) PIP Flexion Active ( 90 degrees) DIP Flexion Active ( 80 70-90 degrees) Left Second PIP Flexion Active ( 80 degrees) DIP Flexion Active ( 62 L 70-90 degrees) Right Second PIP Flexion Active ( 64 degrees) DIP Flexion Active ( 43 L 70-90 degrees) Thumb Goniometric Range of Motion Thumb Measured in Degrees Right Thumb ROM WFL No MCP Flexion Active ( 43 degrees) IP Flexion Active ( 65 degrees) Left Thumb ROM WFL No MCP Flexion Active ( 47 degrees) IP Flexion Active ( 68 degrees) PT-OP-M Strength Start: 04/04/25 17:14 Freq: Status: Active Protocol: Document 04/08/25 07:30 LRN (Rec: 04/08/25 09:08 LRN Laptop) Finger/Thumb Strength Finger Manual Muscle Testing Left Second Flexion (fingers C8) 4+ Good+ Extension (thumb C8) 3+ Fair+ Left Thumb Flexion (fingers C8) 5 Normal Hand Detail Technician/Pinch Strength Hand Dominance Hand Dominance Left Hand Strength Left Tip Pinch (lbs) 8.2 Comments Tip Pinch 3 trials (lbs): Left index and thumb is 8.5, 7, 9 (avg 8.2#) Right Palmar Pinch (lbs) 4.3 Comments Tip Pinch 3 trials (lbs): Right index and thumb is 4.5 , 4, 4.5 (avg 4.3#) PT-OP-Q Treatments Start: 04/04/25 17:14 Freq: Status: Active Protocol: Document 04/08/25 07:30 LRN (Rec: 04/08/25 09:08 LRN Laptop) Self-Care/Home Management Treatment Education Other Education Pt lead discussion on effect of sugar on his joints, as pt has noticed reduction of sugar has decreased his pain. Suggested pt education in oxidative vs anti- oxidant foods for self care, and seek decorator store for information. Discussed results of evaluation, goals, treatment, and plan of care (POC) with pt; pt agreeable to evaluation, goals, treatment and POC. Activities Self-Care/Home Instructed pt in finger extension exercise using light Management rubber band at each joint, but not to exercise with Activities pain. 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 LTG Duration 06/03/25 Two Impairment Dec'd javid thumb, index finger and R middle finger AROM Short Term Goal (STG Pt will be educated in self care hot/cold treatments to ) improve AROM. STG Duration 04/30/25 Fpc Goal (LTG) Pt will improve ability to type with less amount of mis -typing reported. LTG Duration 06/03/25 One Impairment Pt lacks self care HEP Short Term Goal (STG Pt will be educated in adaptive measures to limit ) finger deformation (Oval 8 rings) STG Duration 04/30/25 Fpc Goal (LTG) Pt will be independent with a self care HEP of hand/ wrist ROM and strengthening exercise. 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 The pt's pain has decreased in his L hand with reportedly reduction of sugar in his diet. The pt will probably need external bracing to prevent further deformity and should consider seeing a hand specialist for his bracing needs . The pt will benefit from physical therapy for ROM and strengthening exercises to reduce pain, and education in self care for pain management and consideration in adaptive equipment. The pt would benefit from an occupational therapy consult as he may need further guidance to help him with his typing needs . Physical Therapy Plan Frequency and Duration Frequency of 2x/Week Treatment Duration of 8 treatment (weeks) Plan of Care Start 04/08/25 Plan of Care End 06/03/25 Date Therapeutic Interventions Therapeutic Home Exercise Program,Manual Therapy,Self-Care/Home Interventions Management,Therapeutic Activities,Therapeutic Exercises Modalities Cold Pack/Ice Massage,Paraffin Bath Other Referrals/Consults Referrals/Consults Occupational therapy/Hand Specialist consult. Recommended Next Visit Focus/Plan Next Note Type Treatment Note Next Visit Plan Next: Javid thumb, index finger, R DIP middle finger and L finger. Assess strength and extension mobility. Strengthening: finger, thumb extension > flexion. Education: hot/cold, self ROM, strengthening, protective measures (rings). Modalities: Paraffin dip. Recommend OT for adaptive equipment. POC: Pt education (hot/cold, self ROM, strengthening), Manual therapy, Therapeutic Exercises, modalities ( paraffin dip) Plan of Care Dates Plan of Care Start Date 04/08/25 Plan of Care End Date 06/03/25 Electronically Signed by: Marcie Parks, PT 04/08/25 1944 If you are in agreement with this Plan of Care, please return a signed and dated copy. I have reviewed this Plan of Care and certify that the skilled therapy services above are required to meet the patient?s needs. Physician Signature Date Printed Name and Credentials Clinical Instructor Signature Printed Name and Credentials
--- NOTE | 2025-04-13 16:53 | PT.OTN ---
Current Diagnoses Primary osteoarthritis, right hand (04/13/25) Primary osteoarthritis, left hand (04/13/25) Physical Therapy Treatment Note PT-OP-A Visit Information Start: 04/04/25 17:14 Freq: Status: Active Protocol: Document 04/13/25 13:03 LRN (Rec: 04/13/25 13:52 LRN Laptop) Out-Patient Physical Therapy Visit Information Visit Information Visit Type Treatment Note Visit Start Time 13:03 Visit Stop Time 13:50 Visit Number 2 Evaluation Information Evaluation Date 04/08/25 Precautions Precautions Heart Attack PT-OP-B Current Condition Start: 04/04/25 17:14 Freq: Status: Active Protocol: Document 04/08/25 07:30 LRN (Rec: 04/08/25 09:08 LRN Laptop) Current Condition History of Current Condition Onset Date 2 yrs ago Current Complaints Finger deformation and stiffness. History of Current 2 yrs ago deformation started (with both index fingers) Condition , and had difficulty bending his fingers. Last year was not as bad, but this year it has worsened. 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 He states R hand pain stiffness in the thumb, index and end joint of middle finger; L hand stiffness in the thumb, index and little finger, although the little finger has been feeling better. Pt is L handed. 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 Effect Therapy/ Recovery PT-OP-C Subjective Start: 04/04/25 17:14 Freq: Status: Active Protocol: Document 04/13/25 13:03 LRN (Rec: 04/13/25 13:52 LRN Laptop) OP-PT Subjective Patient Comments Patient Comments States his fingers hurt more yesterday, but today is alright, maybe ate too much sugar. PT-OP-F Manual Assessment Start: 04/04/25 17:14 Freq: Status: Active Protocol: Document 04/08/25 07:30 LRN (Rec: 04/08/25 09:08 LRN Laptop) Manual Assessments Joint Mobility Assessment Joint Mobility R hand: De creased mobility and tenderness at Thumb Assessment MCP jt, Index finger MCP, PIP, DIP jts, Middle finger DIP jt, L hand: Decreased mobility at Thumb MCP/IP jt, Index finger PIP & DIP jts, currently no discomfort at little finger PIP/DIP jts. PT-OP-H Neuro Start: 04/04/25 17:14 Freq: Status: Active Protocol: Document 04/08/25 07:30 LRN (Rec: 04/08/25 09:08 LRN Laptop) Sensation Evaluation Gross Sensation Gross Sensation WNL PT-OP-J Posture/Palpation/Skin Start: 04/04/25 17:14 Freq: Status: Active Protocol: Document 04/08/25 07:30 LRN (Rec: 04/08/25 09:08 LRN Laptop) Posture Evaluation Position Standing Head/C-Spine Posture Forward Head T-Spine Posture Rotation Right Shoulder Posture (L) Elevated Palpation Assessment Location L hand Palpation Location Index & Little Finger & Thumb joints Palpation Findings Soft Tissue Tightness Palpation Details Denies tenderness at joints. R hand Palpation Location Index & Middle Finger & Thumb joints Palpation Findings Soft Tissue Tightness,Tenderness Palpation Details Tenderness of Index finger PIP and DIP jt and Middle finger DIP jt. Thump MCP jt PT-OP-K Range of Motion Start: 04/04/25 17:14 Freq: Status: Active Protocol: Document 04/13/25 13:03 LRN (Rec: 04/13/25 13:52 LRN Laptop) Finger Goniometric Range of Motion Finger Left Fifth MCP Flexion Active ( 95 degrees) PIP Flexion Active ( 94 degrees) DIP Flexion Active ( 96 H 70-90 degrees) Right Fifth MCP Flexion Active ( 90 degrees) PIP Flexion Active ( 90 degrees) DIP Flexion Active ( 80 70-90 degrees) Left Second PIP Flexion Active ( 80 degrees) DIP Flexion Active ( 62 L 70-90 degrees) Right Second PIP Flexion Active ( 64 degrees) DIP Flexion Active ( 43 L 70-90 degrees) Thumb Goniometric Range of Motion Thumb Right CMC Extension Active 42 (degrees) Left CMC Extension Active 52 (degrees) PT-OP-M Strength Start: 04/04/25 17:14 Freq: Status: Active Protocol: Document 04/13/25 13:03 LRN (Rec: 04/13/25 13:52 LRN Laptop) Finger/Thumb Strength Finger Manual Muscle Testing Riight Second Comments Generally 5/5 Right Thumb Comments Finger strength is generally 5/5 Left Second Flexion (fingers C8) 4+ Good+ Extension (thumb C8) 3+ Fair+ Adduction 5 Normal Abduction (fingers 5 Normal T1) Left Thumb Comments Finger strength is generally 5/5 Hand Bean Snipper/Pinch Strength Hand Dominance Hand Dominance Left PT-OP-Q Treatments Start: 04/04/25 17:14 Freq: Status: Active Protocol: Document 04/13/25 13:03 LRN (Rec: 04/13/25 13:52 LRN Laptop) Therapeutic Exercises Sitting Exercises Thumb Sitting Exercise AB/AD/Flex/Ext Name Side bilateral Reps/Minutes 1-2 each Comments MMT taken - no areas of weakness noted except with opposition above. Finger AB/AD Sitting Exercise Digits 2-3 & thumb-digit 2. Name Side bilateral Reps/Minutes 2-3x Comments MMT taken Finger extension Sitting Exercise L & R hand, index finger @ MCP, PIP, DIP jts & R hand Name middle finger DIP jt. Side bilateral Resistance Rubberband Opposition Sitting Exercise Opposition with using index finger, alternating between Name other fingers Side bilateral Reps/Minutes 5 SH x 3 rounds each Manual Therapy Treatment Consent Patient gave verbal Yes consent for manual treatment Other Other Manual Assessing pt's bilateral index fingers and R middle Treatments finger (DIP jt) for Oval 8 ring. Unable to identify ring size due to limited product on hand. Pt appeared to be close to a ring size of 13 for index fingers. No appropriate size available for pt trial for R middle finger DIP jt. Searched internet for information on sizing for patient and recommended pt go to local [facility] and ask to be assessed for ring size to order Oval 8 ring. Self-Care/Home Management Treatment Education Caregiver Education Pt education in self care pain mgmt of Hot/Cold treatment for the hands. Other Education Issued & reviewed Handout for: Contrast Bath treatment . 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 LTG Duration 06/03/25 Two Impairment Dec'd kiley thumb, index finger and R middle finger AROM Short Term Goal (STG Pt will be educated in self care hot/cold treatments to ) improve AROM. 04/13/25: Pt educated in contrast bath self [facility] program. STG Duration 04/30/25 (04/13/25: MET GOAL) Forensics Analyst Goal (LTG) Pt will improve ability to type with less amount of mis -typing reported. LTG Duration 06/03/25 One Impairment Pt lacks self care HEP Short Term Goal (STG Pt will be educated in adaptive measures to limit ) finger deformation (Oval 8 rings). 04/13/25: Pt educated in possible use of Oval 8 finger rings as adaptive measure to limit index finger deformation. STG Duration 04/30/25 (04/13/25: MET GOAL) Alf Goal (LTG) Pt will be independent with a self care HEP of hand/ wrist ROM and strengthening exercise. 04/13/25: Pt I/S in opposition ex and finger ext exercises for HEP. 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 Pt is receptive to use of Oval 8 rings as they feel supportive to him. He will probably need a size 12 or 13. Pt weak with joints of index fingers in extension, but is able to grossly extend fingers. Physical Therapy Plan Frequency and Duration Frequency of 2x/Week Treatment Duration of 8 treatment (weeks) Plan of Care Start 04/08/25 Date Plan of Care End 06/03/25 Date Next Visit Focus/Plan Next Note Type Treatment Note Next Visit Plan Next: Assess response to use of contrast bath for pain mgmt. R DIP middle finger and L finger, assess strength and extension mobility. Might try Paraffin dip. Strengthening: finger, thumb extension > flexion. Education: self ROM, strengthening, protective measures (rings). Modalities: Paraffin dip. Recommend OT for adaptive equipment. POC: Pt education (hot/cold, self ROM, strengthening), Manual therapy, Therapeutic Exercises, modalities ( paraffin dip)
--- NOTE | 2025-04-27 13:52 | PT.OTN ---
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 He did purchase the finger Oval 8 bracing but hard to flex finger activities. Has referral with [facility] for hand Dr, alex name. Therapeutic Exercises Sitting Exercises Finger AB/AD Sitting Exercise Digits 2-3 & thumb-digit 2. Name Side bilateral Reps/Minutes 2-3x Finger extension Sitting Exercise L & R hand, index finger @ MCP, PIP, DIP jts & R hand Name middle finger DIP jt. Side bilateral Resistance other hand resistance Manual Therapy Treatment Consent Patient gave verbal Yes consent for manual treatment Taping Ktaping Body Location R 2& 3rd finger, L 2nd MTP (unable do due to wouldn't stick, gave 4 home) Treatment Focus 2nd MTP midline alignment Type of Tape Kinesio Tape Skin Inspection normal/intact Comments DIP veiring lateral, IP medial for support midline MTP alignment then progression flex/ext with neuro-re-ed AROM Other Other Manual - STMs to forearm flexors and extensors and MWM wrist Treatments flex/ext/pron/supination; intrinic hand and med&lat javid 2-3 MTPs prox and distal, dorsal, palmar surfaces, ed self application *referenced from anatomical position. Neuro Re-Education Treatment Movement Re-Education Movement Re- - Javid: 2nd MTP isometric while support DIP lat devation education Activities IP medial deviation and rotation as needed, then hold while pt performs 1st MTP extension and flexion. Improved alignment correction, see pt phone video with finger extension then flexion more challenging, forgot take video of flexion and Ktaping helped with education for support midline alignment support mobility/AROM that is limited by finger bracing devices. Self-Care/Home Management Treatment Education Patient Education Body Mechanics,Home Exercise Program,Joint Protection, Pain Management Other Education much education anatomy, finger positioning and isometric hold and MWM/ neuro re-ed finger flexion & ext with phone video. 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 LTG Duration 06/03/25 Two Impairment Dec'd javid thumb, index finger and R middle finger AROM Short Term Goal (STG Pt will be educated in self care hot/cold treatments to ) improve AROM. 04/13/25: Pt educated in contrast bath self custodial program. STG Duration 04/30/25 (04/13/25: MET GOAL) Allergy And Immunology Specialist Goal (LTG) Pt will improve ability to type with less amount of mis -typing reported. LTG Duration 06/03/25 One Impairment Pt lacks self care HEP Short Term Goal (STG Pt will be educated in adaptive measures to limit ) finger deformation (Oval 8 rings). 04/13/25: Pt educated in possible use of Oval 8 finger rings as adaptive measure to limit index finger deformation. STG Duration 04/30/25 (04/13/25: MET GOAL) Group Home Goal (LTG) Pt will be independent with a self care HEP of hand/ wrist ROM and strengthening exercise. 04/13/25: Pt I/S in opposition ex and finger ext exercises for HEP. LTG Duration 06/03/25 progressed 04/13/25 Assessment Summary Assessment Pt good feedback response to manual STMs and ed self . Good understanding added HEP: 2nd MTP isometric adduction against opposite hand resistance (pt personal phone video) static hold then progressed isometric hold supported with finger extension. Provided Ktaping for support neuro re-ed during mobility, discussed incorporation with finger bracing if able. Can wear in water. LImited time L hand but pt stated can try himself with help. Good response to paraffin bath today for decreased muscle and jt soreness. Physical Therapy Plan Frequency and Duration Frequency of 2x/Week Treatment Duration of 8 treatment (weeks) Plan of Care Start 04/08/25 Date Plan of Care End 06/03/25 Date Therapeutic Interventions Therapeutic Home Exercise Program,Manual Therapy,Self-Care/Home Interventions Management,Therapeutic Activities,Therapeutic Exercises Modalities Cold Pack/Ice Massage,Paraffin Bath Other Referrals/Consults Referrals/Consults Occupational therapy/Hand Specialist consult. Recommended Next Visit Focus/Plan Next Note Type Treatment Note Next Visit Plan Next: Assess response to use of contrast bath for pain mgmt. R DIP middle finger and L finger, assess strength and extension mobility. Might try Paraffin dip. Strengthening: finger, thumb extension > flexion. Education: self ROM, strengthening, protective measures (rings). Modalities: Paraffin dip. Recommend OT for adaptive equipment. POC: Pt education (hot/cold, self ROM, strengthening), Manual therapy, Therapeutic Exercises, modalities ( paraffin dip)
--- NOTE | 2025-05-04 18:31 | PT.OPPN ---
Current Diagnoses Primary osteoarthritis, right hand (05/04/25) Primary osteoarthritis, left hand (05/04/25) Physical Therapy Progress Note PT OP: Cervical/Upper Extremity Start: 04/13/25 16:56 Freq: Status: Active Protocol: Document 05/04/25 08:23 LRN (Rec: 05/04/25 09:22 LRN Laptop) Out-Patient Physical Therapy Visit Information Visit Information Visit Type Progress Note Visit Start Time 08:23 Visit Stop Time 09:12 Visit Number 4 Progress Note Due 05/08/25 Evaluation Information Evaluation Date 04/08/25 Precautions Precautions Heart Attack OP-PT Subjective Patient Comments Patient Comments States with the pinch and straightening ex's he is able to grasp better and isn't as painful. Patient Questionnaires Quick Dash- Upper Extremity Quick Dash UE Score 13.63 Quick Dash UE 1 to 19% Impaired (Score 1-19) Impairment OP-PT Pain Assessment Location L hand Pain Location Thumb CMC/MCP jt, index and little finger PIP and DIP Details jts Pain Intensity 1 Scale Used Numeric (0 - 10) R hand Pain Location Thumb MCP/CMC jt, index finger PIP/DIP jts and middle Details finger DIP jt. Pain Intensity 1 Scale Used Numeric (0 - 10) Finger Goniometric Range of Motion Finger Measured in Degrees Left Fifth MCP Flexion Active ( 95 degrees) Hand Weigh Machine Operator/Pinch Strength Hand Dominance Hand Dominance Left Hand Strength Left Tip Pinch (lbs) 8.2 Comments Tip Pinch 3 trials (lbs): Left index and thumb is 7, 6 .5 x 2 (6.7avg #) Right Tip Pinch (lbs) 4.3 Comments Tip Pinch 3 trials (lbs): Right index and thumb is 5, 4, 6.5 (avg 5.2#) Therapeutic Exercises Sitting Exercises Pinch Sitting Exercise Thumb with each finger. Name Side bilateral Comments Strength checked. Finger Flex Sitting Exercise Active flex Name Side bilateral Reps/Minutes 5 SH x 10 Comments ROM taken digits 2 & 5. Thumb Sitting Exercise Flex/Ext (AB/AD deferred due to time Name Side bilateral Reps/Minutes 1-2x each Comments ROM taken Finger AB/AD Sitting Exercise Digits 2-3 & thumb-digit 2. Name Side bilateral Reps/Minutes 5' Finger extension Sitting Exercise L & R hand, index finger @ MCP, PIP, DIP jts & R hand Name middle finger DIP jt. Side bilateral Resistance other hand resistance Reps/Minutes 10x Opposition Sitting Exercise Opposition with using index finger, alternating between Name other fingers Side bilateral Reps/Minutes 5 SH x 3 rounds each Comments Pinch strength assessed Paraffin Bath Treatment Right Hand Treatment Technique Dip-immersion Wax Temperature ( 120 degrees F) Number Wax Layers ( 5 layers) Patient Tolerance Good Physical Therapy Assessment Rehab Potential Rehabilitation Fair Potential Evaluation Complexity Number of Personal 1-2 Factors/ Comorbidities Number of Body 4 or More Systems Impaired Clinical Evolving Presentation at Evaluation Impairments Impairments Pain,ROM,Strength Goals Three Impairment Dec'd thumb-index finger pinch & thumb/index/middle finger ext strength Long-Term Goal (LTG) Improve thumb and finger pinch strength to 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 05/04/25: Pt reporting typing is faster and more comfortable to perform. Less painful to use the mouse at start, pain increases. 1/2-3/4% better, typing. LTG Duration 06/03/25 progressed 05/04/25 Two Impairment Dec'd kiley thumb, index finger and R middle finger AROM Short Term Goal (STG Pt will be educated in self care hot/cold treatments to ) improve AROM. 04/13/25: Pt educated in contrast bath self residential program. STG Duration 04/30/25 (04/13/25: MET GOAL) Toy Electric Train Repairer Goal (LTG) Pt will improve ability to type with less amount of mis -typing reported. 05/04/25: Pt states he is 20% better. LTG Duration 06/03/25 progressed 05/04/25 One Impairment Pt lacks self care HEP Short Term Goal (STG Pt will be educated in adaptive measures to limit ) finger deformation (Oval 8 rings). 04/13/25: Pt educated in possible use of Oval 8 finger rings as adaptive measure to limit index finger deformation. STG Duration 04/30/25 (04/13/25: MET GOAL) Toy Electric Train Repairer Goal (LTG) Pt will be independent with a self care HEP of hand/ wrist ROM and strengthening exercise. 04/13/25: Pt I/S in opposition ex and finger ext exercises for HEP. 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 Not able to do paraffin dip on R hand because pt not able to remove ring. Pt demonstrates improve mobility of bilateral 2nd & 5th digits and thumbs. Strength is improved with the R hand, but no significant changes with dominant L hand. The pt wants to improve his typing ability, but with the mechanical changes in his fingers, improvement in accuracy of typing will be quite limited. He has potential to improve in finger mobility and lessening his pain; therefore I recommend the pt continue therapy for another 2-4 weeks to maximize his finger/thumb mobility and strength to help reduce his pain and improve his function. I would recommend the pt be referred to occupational therapy to work on improving function of typing. Physical Therapy Plan Frequency and Duration Frequency of 2x/Week Treatment Duration of 8 treatment (weeks) Plan of Care Start 04/08/25 Date Plan of Care End 06/03/25 Date Therapeutic Interventions Therapeutic Home Exercise Program,Manual Therapy,Self-Care/Home Interventions Management,Therapeutic Activities,Therapeutic Exercises Modalities Cold Pack/Ice Massage,Paraffin Bath Other Referrals/Consults Referrals/Consults Recommend Occupational referral to improve function for Recommended his hobby/job requiring improved typing skill. Next Visit Focus/Plan Next Note Type Treatment Note Next Visit Plan Next: Assess response to use of contrast bath for pain mgmt. R DIP middle finger and L finger, assess strength and extension mobility. Might try Paraffin dip. Strengthening: finger, thumb extension > flexion. Education: self ROM, strengthening, protective measures (rings). Modalities: Paraffin dip. Recommend OT for adaptive equipment. POC: Pt education (hot/cold, self ROM, strengthening), Manual therapy, Therapeutic Exercises, modalities ( paraffin dip)
--- NOTE | 2025-05-11 16:10 | PT.OTN ---
Current Diagnoses Primary osteoarthritis, right hand (05/11/25) Primary osteoarthritis, left hand (05/11/25) Physical Therapy Treatment Note PT OP: Cervical/Upper Extremity Start: 04/13/25 16:56 Freq: Status: Active Protocol: Document 05/11/25 08:20 LRN (Rec: 05/11/25 09:06 LRN Laptop) Out-Patient Physical Therapy Visit Information Visit Information Visit Type Treatment Note Visit Note Hand specialist appt 07/09/25. Visit Start Time 09:20 Visit Stop Time 10:00 Visit Number 5 Progress Note Due 05/08/25 Evaluation Information Evaluation Date 04/08/25 Precautions Precautions Heart Attack OP-PT Subjective Patient Comments Patient Comments States his R index finger on top and sides at PIP jt has been more painful since last session. Has been cleaning out his garage and gripping things. Finger/Thumb Strength Finger Manual Muscle Testing Left Second Extension (thumb C8) 3 Fair Comments Index/little finger DIP ext strength is 3/5 Left Thumb Extension (thumb C8) 5 Normal Comments L thumb ext strength is normal Therapeutic Exercises Sitting Exercises Thumb Sitting Exercise Ext lifts Name Reps/Minutes 15x Finger AB/AD Sitting Exercise All digits & digits 2-3 & thumb-digit 2. Name Side bilateral Reps/Minutes 15 x each Comments 15x 2 for R index finger AB sliding on tissue. Finger extension Sitting Exercise Gross finger lifts, Index L DIP jt ext, R index w/ Name manual support PIP jt Comments L thumb ext strength is normal, index/little finger DIP ext strength is 3/5 Paraffin Bath Treatment Right Hand Treatment Technique Dip-immersion Wax Temperature ( 120 degrees F) Number Wax Layers ( 7 layers) Patient Tolerance Good Left Hand Treatment Technique Dip-immersion Wax Temperature ( 120 degrees F) Number Wax Layers ( 7 layers) Patient Tolerance Good Comment Treatment Comment Extra time needed to removal ring, washing hands x2, avoid abrasion on dip Physical Therapy Assessment Goals Three Impairment Dec'd thumb-index finger pinch & thumb/index/middle finger ext strength Assisted Goal (LTG) Improve thumb and finger pinch strength to 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 05/04/25: Pt reporting typing is faster and more comfortable to perform. Less painful to use the mouse at start, pain increases. 1/2-3/4% better, typing. LTG Duration 06/03/25 progressed 05/04/25 Two Impairment Dec'd kiley thumb, index finger and R middle finger AROM Short Term Goal (STG Pt will be educated in self care hot/cold treatments to ) improve AROM. 04/13/25: Pt educated in contrast bath self nursing home program. STG Duration 04/30/25 (04/13/25: MET GOAL) Assisted Goal (LTG) Pt will improve ability to type with less amount of mis -typing reported. 05/04/25: Pt states he is 20% better. LTG Duration 06/03/25 progressed 05/04/25 One Impairment Pt lacks self care HEP Short Term Goal (STG Pt will be educated in adaptive measures to limit ) finger deformation (Oval 8 rings). 04/13/25: Pt educated in possible use of Oval 8 finger rings as adaptive measure to limit index finger deformation. STG Duration 04/30/25 (04/13/25: MET GOAL) Assisted Goal (LTG) Pt will be independent with a self care HEP of hand/ wrist ROM and strengthening exercise. 04/13/25: Pt I/S in opposition ex and finger ext exercises for HEP. 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 Today, pt admits he did not use the contrast bath self treatment for pain. L thumb ext strength is normal, index/little finger DIP ext strength is 3/5. R thumb & index finger DIP strength is 3/5, middle finger is 5/5. Pt had full relief of R index finger pain after Paraffin dip and strengthening ex (no ROM ex performed). Physical Therapy Plan Frequency and Duration Frequency of 2x/Week Treatment Duration of 8 treatment (weeks) Plan of Care Start 04/08/25 Date Plan of Care End 06/03/25 Date Next Visit Focus/Plan Next Note Type Treatment Note Next Visit Plan Next: Assess response to use of contrast bath for pain mgmt. Assess extension mobility of R DIP middle finger and L DIP index finger. Strengthening: finger, thumb extension > flexion. self ROM, strengthening, protective measures (rings). Modalities: Paraffin dip. Recommend OT for adaptive equipment. POC: Pt education (hot/cold, self ROM, strengthening), Manual therapy, Therapeutic Exercises, modalities ( paraffin dip)
--- NOTE | 2025-05-18 09:05 | PT.OTN ---
Current Diagnoses Primary osteoarthritis, right hand (05/18/25) Primary osteoarthritis, left hand (05/18/25) Physical Therapy Treatment Note PT OP: Cervical/Upper Extremity Start: 04/13/25 16:56 Freq: Status: Active Protocol: Document 05/18/25 08:20 SP (Rec: 05/18/25 09:08 SP [id number]) Out-Patient Physical Therapy Visit Information Visit Information Visit Type Treatment Note Visit Note SPTA Adrienne assisted SORT SUPERVISOR Winnie during tx with manual and ther ex instruction while under direct supervision and instruction of SORT SUPERVISOR Winnie, with patient permission. Visit Start Time 08:20 Visit Stop Time 09:05 Visit Number 6 Number of SORT SUPERVISOR Visits 1 Progress Note Due 06/02/25 Evaluation Information Evaluation Date 04/08/25 Precautions Precautions Heart Attack OP-PT Subjective Patient Comments Patient Comments Pt reports was able to get into see the Hand Specialist last 05/12/25, wasn't recommended finger joint replacement due to doesn't seem to last and discontinue wearing finger splints as per PT recommendation due to undo pressure on convex side of finger joint which also limit ROM but to just keep the fingers moving. Pt stated didn't know if the KTaping helped last tx seen by SORT SUPERVISOR and ktaping didn't stick very well thinks due to softening of skin after paraffin. Contrast bath for pain is helping at home. Therapeutic Exercises Sitting Exercises Finger Flex Sitting Exercise Active flex Name Side bilateral Resistance AROM, manual resistance then added yellow putty for self 05/18/25 Reps/Minutes 5 SH x 10 Comments SPTA and SORT SUPERVISOR support for Kiley 2nd PIP and DIP midline align Finger AB/AD Sitting Exercise all digits, digits 2-3, thumb-digit 2. Name Side bilateral Resistance manual resistance ABD and ADD then instructed yellow theraputty 05/18/25 Reps/Minutes 5 reps x2 sets Finger extension Sitting Exercise Gross finger lifts, Index L DIP jt ext, R index w/ Name manual support PIP jt Resistance assisted alighment AROM, resisted AROM, add:yellow putty flattened on table Equipment Used 2nd finger kiley Reps/Minutes 10 reps each Comments improved alignment against putty resistance Manual Therapy Treatment Consent Patient gave verbal Yes consent for manual treatment Joint Mobilizations fingers Direction DIstraction with A<>P, Med<>Lat, Rotational Body Position seated Comments L PIP and DIP R PIP Paraffin Bath Treatment Right Hand Treatment Technique Dip-immersion Wax Temperature ( 120 degrees F) Number Wax Layers ( 7 layers) Patient Tolerance Good Left Hand Treatment Technique Dip-immersion Wax Temperature ( 120 degrees F) Number Wax Layers ( 7 layers) Patient Tolerance Good Physical Therapy Assessment Goals Three Impairment Dec'd thumb-index finger pinch & thumb/index/middle finger ext strength 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 05/04/25: Pt reporting typing is faster and more comfortable to perform. Less painful to use the mouse at start, pain increases. 1/2-3/4% better, typing. LTG Duration 06/03/25 progressed 05/04/25 Two Impairment Dec'd kiley thumb, index finger and R middle finger AROM Short Term Goal (STG Pt will be educated in self care hot/cold treatments to ) improve AROM. 04/13/25: Pt educated in contrast bath self fdc program. STG Duration 04/30/25 (04/13/25: MET GOAL) Care Home Goal (LTG) Pt will improve ability to type with less amount of mis -typing reported. 05/04/25: Pt states he is 20% better. LTG Duration 06/03/25 progressed 05/04/25 One Impairment Pt lacks self care HEP Short Term Goal (STG Pt will be educated in adaptive measures to limit ) finger deformation (Oval 8 rings). 04/13/25: Pt educated in possible use of Oval 8 finger rings as adaptive measure to limit index finger deformation. STG Duration 04/30/25 (04/13/25: MET GOAL) Care Home Goal (LTG) Pt will be independent with a self care HEP of hand/ wrist ROM and strengthening exercise. 04/13/25: Pt I/S in opposition ex and finger ext exercises for HEP. LTG Duration 06/03/25 progressed 04/13/25 Assessment Summary Assessment Pt demonstrated increased less resisted AROM after paraffin bath and joint mobes. SORT SUPERVISOR and SPTA Adrienne provided manual asisst for midline 2nd finger alignment while moves finger into flexion and extension. Instructed use and provided yellow theraputty for strength into flexion, extension, abduction and adduction to allow ROM and strength for carrying his cup of coffee. Physical Therapy Plan Frequency and Duration Frequency of 2x/Week Treatment Duration of 8 treatment (weeks) Plan of Care Start 04/08/25 Date Plan of Care End 06/03/25 Date Therapeutic Interventions Therapeutic Home Exercise Program,Manual Therapy,Self-Care/Home Interventions Management,Therapeutic Activities,Therapeutic Exercises Modalities Cold Pack/Ice Massage,Paraffin Bath Other Referrals/Consults Referrals/Consults Recommend Occupational referral to improve function for Recommended his hobby/job requiring improved typing skill. Next Visit Focus/Plan Next Note Type Treatment Note Next Visit Plan Next: Assess extension mobility with use of putty added last tx, of R DIP middle finger and L DIP index finger . Strengthening: finger, thumb extension > flexion. self ROM, strengthening, protective measures (rings). Modalities: Paraffin dip. Recommend OT for adaptive equipment. POC: Pt education (hot/cold, self ROM, strengthening), Manual therapy, Therapeutic Exercises, modalities ( paraffin dip)
--- NOTE | 2025-05-20 16:04 | PT.OTN ---
Current Diagnoses Primary osteoarthritis, right hand (05/20/25) Primary osteoarthritis, left hand (05/20/25) Physical Therapy Treatment Note PT OP: Cervical/Upper Extremity Start: 04/13/25 16:56 Freq: Status: Active Protocol: Document 05/20/25 07:31 PD (Rec: 05/20/25 08:38 PD [id number]) Out-Patient Physical Therapy Visit Information Visit Information Visit Type Treatment Note Visit Note PAYTON Deleon led tx session with direct supervision by CLIF Crowell with patient permission. 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 He has been working with the putty exercises for his HEP and thinks they help. He is using warm water bath in mornings but not contrast bath. Patient Reported Improving Progress Therapeutic Exercises Sitting Exercises Medial/Ulnar Nerve glides Sitting Exercise Tendon glides to hands/fingers (see HEP HO) Name Side bilateral Resistance None Reps/Minutes 2 x Comments Demonstrated glide, added to HEP with HO and photos as warm up pre putty ex Finger Flex Sitting Exercise Active flex Name Side bilateral Equipment Used digiflex green Reps/Minutes 5 x each finger Comments VC for slow up and down, each finger pressing against thumb Opposition Sitting Exercise Opposition with clip placement on board Name Side bilateral Resistance green small clips Equipment Used OT green clips with board Reps/Minutes 3 x each finger in opposition in clipping Comments Alternated each finger on L and R hand place on and off clip board. Standing Exercises Finger Abduction Standing Exercise Finger abduction Name Side bilateral Equipment Used none Reps/Minutes 2 x 10 Comments Pt warming up with slow abd/add and reports no pn in hands or fingers. Prayer stretch Standing Exercise Prayer stretch Name Side bilateral Reps/Minutes 2 x 15 Comments Pt demonstrates wrist extension WNL and reports completes this often Manual Therapy Treatment Consent Patient gave verbal Yes consent for manual treatment Soft Tissue Mobilization Fingers Body Location Abd/Add/flexors on digits 2 and 3 Mobilization Type Cross-Friction,Rolling,Strumming Intensity/Depth Moderate Body Position Forearm prone, hand resting on pillow on table Comments Pt reports he self massages in same areas of these fingers as they become sore. Worked on mobilizing mm that are tightened with jts that are losing alignment. Joint Mobilizations fingers Joint Digits 2 and 3 PIP and DIP jts Direction Distraction with A<>P, Med<>Lat Body Position seated Reps/Duration 30 each jt, each direction Comments Pt reports no pn with jt mobs today. L2 mobs used. R DIP jt has a catch near end of range, stayed less than the catch on mobs. 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 05/04/25: Pt reporting typing is faster and more comfortable to perform. Less painful to use the mouse at start, pain increases. 1/2-3/4% better, typing. 05/20 Pt reports pn less with typing, going better, no pn with mouse, index finger not tracking sometimes./ LTG Duration 06/03/25 progressed 05/20/25 Two Impairment Dec'd kiley thumb, index finger and R middle finger AROM Short Term Goal (STG Pt will be educated in self care hot/cold treatments to ) improve AROM. 04/13/25: Pt educated in contrast bath self shelter program. 05/20 Pt doing warm bath, does not use contract bath. 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 05/04/25: Pt states he is 20% better. 05/20/25: Pt reports typing continues to improve, cannot provide percent. LTG Duration 06/03/25 progressed 05/20/25 One Impairment Pt lacks self care HEP Short Term Goal (STG Pt will be educated in adaptive measures to limit ) finger deformation (Oval 8 rings). 04/13/25: Pt educated in possible use of Oval 8 finger rings as adaptive measure to limit index finger deformation. 05/20/25: Pt reports MD instructed him to discontinue use of Oval finger rings. STG Duration 04/30/25 (04/13/25: MET GOAL) Assisted Goal (LTG) Pt will be independent with a self care HEP of hand/ wrist ROM and strengthening exercise. 04/13/25: Pt I/S in opposition ex and finger ext exercises for HEP. LTG Duration 06/03/25 progressed 04/13/25 Assessment Summary Assessment Pt reports no pn at end of session. He was able to improve individual finger activation with successive sets new ther ex of placing clips on board with alternating digits 2-5 opposition to thumb. Paraffin used while conducting STM and ther ex to ipsilateral hand. HEP updated to include tendon glides on hand and finger abduction as warm up exercises to do after warm water bath and prior to more intensive putty work. Physical Therapy Plan Frequency and Duration Frequency of 2x/Week Treatment Duration of 8 treatment (weeks) Plan of Care Start 04/08/25 Date Plan of Care End 06/03/25 Date Next Visit Focus/Plan Next Note Type Treatment Note Next Visit Plan Next: Assess pn and mobility after continued use of putty with addition of warm up exercises in HEP, continue STM and jt mobs to digits 2-3, progress finger opposition, flexion, extension ex.
--- NOTE | 2025-05-31 16:00 | PT.OPDS ---
Current Diagnoses Primary osteoarthritis, right hand (05/31/25) Primary osteoarthritis, left hand (05/31/25) Visit Care Team Role Provider Type Hank Desai MD Attending Provider Non-Staff Family Provider Primary Care Provider Referring Provider Specialty: Internal Medicine [facility] [place], [address] Email: Visit Number Visit Number 9 Discharge Summary PT OP: Cervical/Upper Extremity Start: 04/13/25 16:56 Freq: Status: Active Protocol: Document 05/31/25 15:59 DCW (Rec: 05/31/25 16:00 DCW [id number]) Out-Patient Physical Therapy Visit Information Visit Information Visit Type Discharge Summary Physical Therapy Assessment Goals Three Impairment Dec'd thumb-index finger pinch & thumb/index/middle finger ext strength Correction Goal (LTG) Improve thumb and finger pinch strength to 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 05/04/25: Pt reporting typing is faster and more comfortable to perform. Less painful to use the mouse at start, pain increases. 1/2-3/4% better, typing. 05/20 Pt reports pn less with typing, going better, no pn with mouse, index finger not tracking sometimes. 05/31/25: MET GOAL: L hand gain gain 3lb , R hand 2 lbs finger strength. 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 LTG Duration 06/03/25 MET goal 05/31/25 Two Impairment Dec'd kiley thumb, index finger and R middle finger AROM Short Term Goal (STG Pt will be educated in self care hot/cold treatments to ) improve AROM. 04/13/25: Pt educated in contrast bath self senior living program. 05/20 Pt doing warm bath, does not use contract bath. 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 05/04/25: Pt states he is 20% better. 05/20/25: Pt reports typing continues to improve, cannot provide percent. 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 LTG Duration 06/03/25 GOAL MET 05/31/25 One Impairment Pt lacks self care HEP Short Term Goal (STG Pt will be educated in adaptive measures to limit ) finger deformation (Oval 8 rings). 04/13/25: Pt educated in possible use of Oval 8 finger rings as adaptive measure to limit index finger deformation. 05/20/25: Pt reports MD instructed him to discontinue use of Oval finger rings. STG Duration 04/30/25 (04/13/25: MET GOAL) Correction Goal (LTG) Pt will be independent with a self care HEP of hand/ wrist ROM and strengthening exercise. 04/13/25: Pt I/S in opposition ex and finger ext exercises for HEP. 05/28/25: Pt completing HEP, progressed to include B wrist flexion/extension with eccentric focus, 5#DB; red theraputty exercises: bilateral power soa engineer, finger opposition, finger extension, scissors exercises; also doing prayer/reverse prayer stretch, self massage and DIP and PIP self jt mobs to digits 2, 3 bilaterally 05/31/25 Pt completing all HEP exercises when he isn't doing a lot of manual hand work during the day, using red theraputty for the hand/finger exercises and added in the wrist eccentric flexion/extension. Providing pt with blue theraputty so he can progress as he feel able . Goal met. LTG Duration 06/03/25 progressed 04/13/25 GOAL MET 05/31/25 Progress Towards Goals Progress Towards Goals Met Goals Assessment Summary Assessment Pt has met all goals, feels comfortable with his home exercises, and has no further concerns regarding his hand function. Pt will be discharged from skilled therapy at this time. Physical Therapy Plan Discharge Physical Therapy Discharge Reasons Goals Met Next Visit Focus/Plan Next Note Type Discharge Summary
== END 2025-06-02 12:07 | disposition home or self-care (01) ==
LOC: PHYS 13:45
PROVIDERS: Family Provider Internal Medicine; PCP Internal Medicine; Referring Provider Internal Medicine; Visit Provider Internal Medicine
DX: M19.041 Primary osteoarthritis, right hand (principal); M19.042 Primary osteoarthritis, left hand
CPT/HCPCS: 97018; 97110; 97112; 97140; 97162; 97535